=== PATIENT | male | born 1940 | race Caucasian/White ===

== ENCOUNTER 2020-07-04 06:36 | Inpatient (IN) ==
--- NOTE | 2020-06-19 10:01 | PAT Medication Instructions ---
Medication Instructions Date of Service June 19, 2020 Home Medications allopurinol 300 mg PO 2XWK aspirin 162 mg PO HS atorvastatin 40 mg PO HS bisoprolol fumarate 5 mg PO QAM ibuprofen [Ibuprin] 200 mg PO Q6H PRN losartan 50 mg PO QAM Continue as directed allopurinol 300 mg PO 2XWK ASK your surgeon for instructions ibuprofen [Ibuprin] 200 mg PO Q6H PRN ASK your prescriber and surgeon aspirin 162 mg PO HS DO NOT take the morning of surgery losartan 50 mg PO QAM Take morning of surgery With a small sip of water, OTHERWISE NOTHING TO EAT OR DRINK AFTER MIDNIGHT: bisoprolol fumarate 5 mg PO QAM Take evening before surgery atorvastatin 40 mg PO HS Other Notes If you have any questions please call us at [phone] or [phone] or [phone] or [phone]
--- NOTE | 2020-06-20 10:52 | Anesthesiology Consultation ---
Date of Service June 20, 2020 Assessment & Plan (1) Encounter for pre-operative examination: Chart Review Chart Review: Pending: Refer to Additional Notes / Consult section (pending surgeon ordered PCP and cardio clearances ) and Patient seen in Pre Admission Testing Awaiting PCP (06/25) and cardio (06/26) surgeon ordered clearance Per PAT appt on 06/20/20, pt resides in [facility]. Travels to [facility] for medical appts. Wears mask, uses good hand hygiene and socially distances. No known Covid positive contacts or Covid related symptoms. Pt's son traveled to [facility] one week ago to [employer]- no contact with others. Educa marie patient to follow up with surgeon's office regarding Covid testing. Educated on importance of self quarantining, social distancing and wearing mask in public both for the patient and household contacts. Teaching & Discussion Pre-Anesthesia Teaching/Discussion Notes: Instructed NPO after midnight before surgery,except medications with 15 cc of water. Medication instructions provided according to the [facility] guidelines. History Surgery Operation Date: 07/04/20 09:35 Proposed Procedures p L2-S1 Decompression Fusion, Spinal Cord Monitoring - Anup Dillon, Height/Weight Height: 5 ft 11 in Weight: 112.6 kg Allergies Allergy/AdvReac Type Severity Reaction Status Date / Time No Known Allergies Allergy Verified 06/18/20 09:41 Medications Home Medications Medication Instructions Recorded Confirmed Last Taken allopurinol 300 mg PO 2XWK 06/18/20 06/18/20 Unknown aspirin 162 mg PO HS 06/18/20 06/18/20 Unknown atorvastatin 40 mg PO HS 06/18/20 06/18/20 Unknown bisoprolol fumarate 5 mg PO QAM 06/18/20 06/18/20 Unknown ibuprofen [Ibuprin] 200 mg PO Q6H PRN 06/18/20 06/18/20 Unknown losartan 50 mg PO QAM 06/18/20 06/18/20 Unknown Past Medical History Medical History (Updated 06/20/20 @ 11:45 by Mayuri Joshi PA-C) Aortic stenosis Moderate per 09/2019 ECHO- chronic murmur - follows with Dr. Hazel Chronic back pain LOWER BACK GERD (gastroesophageal reflux disease) Well controlled and stable Gout No recent flares Hyperlipidemia Hypertension SOB (shortness of breath) on exertion INACTIVE DUE TO BACK ISSUES Exercise / Class Metabolic Activity II 4-5 Yardwork/Stairs/Walk up hill (one flight of stairs - no chest pain or SOB) Past Family History Family History Sister Family history of diabetes mellitus Sister Family history of diabetes mellitus Past Surgical History Surgical History H/O myringotomy History of cataract surgery RIGHT History of ear surgery RIGHT-FOR MASTOID ISSUES Past Anesthesia History No Hx of Anesthesia Complications and No Family Hx of Anesthesia Complications History of PONV No Hx of PONV and No Hx of Motion Sickness Social History Smoking Status: Former smoker Smoking End Date: QUIT AGE 25 YRS Hx Alcohol Use: Yes Alcohol type: beer alcohol intake frequency: a few times a week Hx Substance Use: No Review of Systems Occ snoring- had hx of sleep study- no MANUEL Patient denies chest pain, shortness of breath, dyspnea on exertion, cough, wheezing, palpitations. No hx of seizures, stroke, [place]. No hx of blood clots or blood transfusions Physical Exam Vital Signs VITALS BP 164/68 P 52 (chronic bradycardia per patient) TEMP 97.7 SP02 96% RESP 16 Constitutional no acute distress ENMT Mouth: + small oral opening; no TMJ clicking Thyromental Distance: > or= 3.5 Finger Breadths (3.5) Mallampati Class: II Missing molars and side teeth Chipped upper left side tooth Neck + limited neck extension (mild ) Respiratory normal respiratory effort; no respiratory distress Auscultation: lungs clear to auscultation bilaterally; no wheezes Cardiovascular Rate/Rhythm: regular rate and regular rhythm Heart Sounds: + murmur (III/ systolic murmur ) Vessels: no carotid bruit Extra beat occacsionally Musculoskeletal Spine: no pain with cervical ROM Neurologic moves all extremities Psychiatric Orientation: alert Testing Laboratory Results 06/20/20 11:16 06/20/20 11:16 PT 11.4 Seconds (9.0-12.0) 06/20/20 11:16 INR 1.1 (0.9-1.1) 06/20/20 11:16 APTT 30.7 Seconds (21.0-31.0) 06/20/20 11:16 Urine Color Yellow 06/20/20 Unknown Urine Appearance Clear (Clear) 06/20/20 Unknown Urine pH 6.5 (4.5-7.5) 06/20/20 Unknown Ur Specific [place] 1.019 (1.000-1.030) 06/20/20 Unknown Urine Protein Trace (Negative) H 06/20/20 Unknown Urine Glucose (UA) Negative (Negative) 06/20/20 Unknown Urine Ketones Negative (Negative) 06/20/20 Unknown Urine Nitrite Negative (Negative) 06/20/20 Unknown Ur Leukocyte Esterase Negative (Negative) 06/20/20 Unknown Urine WBC (Auto) 1-5 /hpf (0-5) 06/20/20 Unknown Urine RBC (Auto) 0-4 /hpf (0-4) 06/20/20 Unknown U Hyaline Cast (Auto) 0 /lpf (0-5) 06/20/20 Unknown U Epithel Cells (Auto) 0-5 /lpf (0-5) 06/20/20 Unknown Urine Bacteria (Auto) Negative (Negative) 06/20/20 Unknown Blood Type A Positive 06/20/20 11:16 Antibody Screen NEGATIVE 06/20/20 11:16 Electrocardiogram Date: 06/20/20 Sinus bradycardia with occasional PVCs at 53 bpm. Left atrial enlargement. Otherwise normal EKG. Chest X-Ray Date: 06/20/20 Findings: + NAD Echocardiogram Date: 10/02/19 EF: 60-65% LV Function: normal RWMA: + none Valvular Disease: + MR (mild) Degenerated, trileaflet AV with moderate (MG= 29mmHg, DION 1.3cm2). Mild TR. RVSP 45mmHg.
--- NOTE | 2020-06-20 11:56 | XRay Report ---
XR chest Pre-admission PA/Lat CLINICAL HISTORY: pat COMPARISON STUDY: No previous studies for comparison. FINDINGS: Lung volumes are normal. Lungs are clear. There is no pneumothorax or pleural effusion. Car diac size is at the upper limits of normal. Mediastinal contours are normal. There is no evidence for pulmonary edema. IMPRESSION: No acute cardiopulmonary findings. ACT 112: Negative or not required by law. Electronically signed by: Manuelito Cunningham M.D. 06/20/2020 11:55 AM
[2020-06-20 12:34] LABS: Basophils # (auto) 0.04 K/uL (0-0.2); Basophils % (auto) 0.5 %; Eosinophils # (auto) 0.25 K/uL (0-0.5); Eosinophils % (auto) 2.8 %; Hematocrit (blood only) 42.8 % (42-52); Hemoglobin 14.3 g/dL (14.0-18.0); Immature Granulocytes # (auto) 0.02 K/uL (0.00-0.02); Immature Granulocytes % (auto) 0.2 %; Lymphocytes # (auto) 2.03 K/uL (1.2-3.4); Lymphocytes % (auto) 22.9 %; Mean Corpuscular Hemoglobin 30.8 pg (25-34); Mean Corpuscular Hgb Conc 33.4 g/dL (32-36); Mean Platelet Volume 11.6 fL (7.4-10.4); Monocytes # (auto) 0.63 K/uL (0.11-0.59); Monocytes % (auto) 7.1 %; Neutrophils % (auto) 66.5 %; Platelet Count 220 K/uL (130-400); RDW Coefficient of Variation 14.7 % (11.5-14.5); RDW Standard Deviation 49.6 fL (36.4-46.3); Red Blood Count 4.65 M/uL (4.7-6.1); White Blood Count 8.87 K/uL (4.8-10.8)
[2020-06-20 12:38] LABS: Appearance Urine Clear (Clear); Bacteria Urine Automated Negative (Negative); Bilirubin Urine Negative (Negative); Blood Urine Negative (Negative); Cast Urine Automated 0 /lpf (0-5); Color Urine Yellow; Epithelial Cell Urine Auto 0-5 /lpf (0-5); Glucose Urine UA Negative (Negative); Ketones Urine Negative (Negative); Leukocyte Esterase Urine Negative (Negative); Nitrite Urine Negative (Negative); Protein Urine Trace (Negative); RBC Urine Automated 0-4 /hpf (0-4); Specific Gravity Urine 1.019 (1.000-1.030); Urobilinogen Urine Negative (Negative); pH Urine 6.5 (4.5-7.5)
[2020-06-20 12:43] LABS: INR 1.1 (0.9-1.1); Partial Thromboplastin Ratio 1.1; Partial Thromboplastin Time 30.7 Seconds (21.0-31.0); Prothrombin Time 11.4 Seconds (9.0-12.0)
[2020-06-20 12:44] LABS: BUN Creatinine Ratio 14.9 (10-20); Calcium 8.9 mg/dl (8.5-10.1); Creatinine Clr Calc Pharmacy 76.7 ml/min; Est GFR (African American) 84.1; Est GFR (Non-African American) 72.5; Potassium 4.4 mmol/L (3.5-5.1)
--- NOTE | 2020-06-20 19:04 | Electrocardiogram Report ---
Test Reason : Blood Pressure : / mmHG Vent. Rate : 053 BPM Atrial Rate : 053 BPM P-R Int : 204 ms QRS Dur : 092 ms QT Int : 432 ms P-R-T Axes : 058 065 051 degrees QTc Int : 405 ms Sinus bradycardia with occasional Premature ventricular complexes Left atrial enlargement Otherwise normal ECG No previous ECGs available Confirmed by Simone Foreman ([id number]) on 06/20/2020 7:04:23 PM Referred By: Anup Dillon Confirmed By:Ronald Foreman
[~2020-07-04 06:36] MED LIST: ACETAMINOPHEN 500 MG TAB PO SCH; CeleBREX 200 MG CAP PO SCH; GABAPENTIN 300 MG CAP PO SCH; LR 15ML/HR IV SCH; ceFAZolin 2000MG 2,000 MG/15 ML SYR IV SCH
[2020-07-04] MEDS ORDERED: MIDAZOLAM HCL 1 MG/ML 2ML VIAL ONE (06:59)
[2020-07-04] MEDS ORDERED: fentaNYL citrate 100 MCG/2 ML VIAL ONE ×3 (06:59→10:50)
[2020-07-04] MEDS ORDERED: fentaNYL citrate 100 MCG/2 ML VIAL IV PRN (07:00)
[2020-07-04] MEDS ORDERED: ONDANSETRON INJ 2 MG/ML 2 ML VIAL IV PRN ×2 (07:00→12:48)
[2020-07-04] MEDS ORDERED: ePHEDrine sulfate 50 MG/ML AMP IV PRN (07:00)
[2020-07-04] MEDS ORDERED: ATROPINE SULFATE 0.1 MG/ML 10ML SYR IV PRN (07:00)
[2020-07-04] MEDS ORDERED: PROPOFOL IV EMULSION 10 MG/ML 20 ML VIAL IV ONE (07:08)
[2020-07-04] MEDS ORDERED: LIDOCAINE HCL 2% 2 ML VIAL/AMP(20MG/ML) INFIL ONE (07:08)
[2020-07-04] MEDS ORDERED: ROCURONIUM BROMIDE 10 MG/ML 5 ML VIAL IV ONE ×5 (07:08→09:53)
[2020-07-04] MEDS ORDERED: BACITRACIN INJ 50,000 UNIT VIAL ONE (07:11)
[2020-07-04] MEDS ORDERED: BUPIVACAINE/EPINEPHRINE 0.25% 1:200,000 30 ML VIAL ONE (07:11)
--- NOTE | 2020-07-04 07:32 | History & Physical Bridge Note ---
Date of Service July 04, 2020 History & Physical Bridge Note I have examined the patient, reviewed the History & Physical and in the interval since the performance of the History & Physical I have noted the following changes of clinical significance: no changes noted
--- NOTE | 2020-07-04 07:33 | History & Physical Report ---
Date of Service July 04, 2020 Assessment & Plan (1) Neurogenic claudication due to lumbar spinal stenosis: Admission and Anticipated Discharge Date Admission Date: L2-S1 decompression fusion History of Present Illness Chief Complaint: Back and bilateral leg pain Primary Care Provider: Amparo Brody This is a 80-year-old male who presents with back and bilateral leg pain. Failing since course of nonoperative care is here for surgical intervention. Allergies Allergy/AdvReac Type Severity Reaction Status Date / Time No Known Allergies Allergy Verified 07/04/20 07:09 Home Medications Home Medications Medication Instructions Recorded Confirmed Type allopurinol 300 mg PO 2XWK 06/18/20 07/04/20 History aspirin 162 mg PO HS 06/18/20 07/04/20 History atorvastatin 40 mg PO HS 06/18/20 07/04/20 History bisoprolol fumarate 5 mg PO QAM 06/18/20 07/04/20 History ibuprofen [Ibuprin] 200 mg PO Q6H PRN 06/18/20 07/04/20 History losartan 50 mg PO QAM 06/18/20 07/04/20 History Past Med/Surg History Medical History (Updated 07/04/20 @ 07:33 by Anup Dillon DO) Aortic stenosis Moderate per 09/2019 ECHO- chronic murmur - follows with Dr. Hazel Chronic back pain LOWER BACK GERD (gastroesophageal reflux disease) Well controlled and stable Gout No recent flares Hyperlipidemia Hypertension SOB (shortness of breath) on exertion INACTIVE DUE TO BACK ISSUES Surgical History H/O myringotomy History of cataract surgery RIGHT History of ear surgery RIGHT-FOR MASTOID ISSUES Family History Sister Family history of diabetes mellitus Sister Family history of diabetes mellitus Social History Smoking Status: Former smoker Smoking End Date: QUIT AGE 25 YRS; Second Hand Exposure: Yes (FATHER SMOKED); Hx Alcohol Use: Yes Alcohol type: beer Hx Substance Use: No Preferred Language: Divehi Communication Ability: Effective Windows Vmware Engineer Required: No Beliefs That Will Affect Care: None Current Living Situation: Alone Other Information That Helps Us Care for You: No Feels Safe at Home: Yes Safety Concerns: Feels Safe At This Time Assistive Devices: Cane and Glasses Assistive Devices Comment: CANE PRN Physical Exam Physical Exam: Patient is alert and oriented neurologically intact. Heart regular rate and rhythm. Lungs clear to auscultation. Results & Data ([facility]) Vital Signs (Past 12 Hours) Vital Signs Temp Pulse Resp BP Pulse Ox 07/04/20 07:14 36.7 C 73 20 175/83 H 97
[2020-07-04] MEDS ORDERED: ePHEDrine sulfate 50 MG/ML SYR ONE (08:07)
[2020-07-04] MEDS ORDERED: THROMBIN FOR SOLN 20000 UNIT KIT ONE (08:15)
[2020-07-04] MEDS ORDERED: ONDANSETRON INJ 2 MG/ML 2 ML VIAL ONE (08:58)
[2020-07-04] MEDS ORDERED: NEOSTIGMINE METHYLSULFATE 1 MG/ML 10ML VIAL ONE (08:58)
[2020-07-04] MEDS ORDERED: DEXAMETHASONE SOD INJ 4 MG/ML VIAL ONE (08:58)
[2020-07-04] MEDS ORDERED: GLYCOPYRROLATE 0.2 MG/ML VIAL ONE (08:58)
[2020-07-04] MEDS ORDERED: FLOSEAL HEMOSTATIC MATRIX 10ML TOP ONE (10:38)
--- NOTE | 2020-07-04 10:39 | Operative Report ---
Post Operative Report Pre & Post Diagnosis Operation Date: 07/04/20 07:45 Pre-Op Diagnosis: Spinal Stenosis, Lumbar Region with Neurogenic Cla Post-Op Diagnosis: Spinal Stenosis, Lumbar Region with Neurogenic Cla I identified the patient and participated in the time-out.: Yes Procedure Operation Date: 07/04/20 07:45 Actual Procedures #1 lumbar decompression with bilateral medial facetectomies and foraminotomies L2-3, L3-4, L4-5 and L5-S1. #2 posterior spinal fusion L2-3, L3-4, L4-5 and L5- S1. #3 placement posterior segmental instrumentation L2-S1 including a cross- link. #4 placement locally harvested morselized autograft in the posterior lateral gutters. #5 placement infuse collagen sponge, master graft in the posterior lateral gutters. Surgeon Anup Dillon, DO Grinder Set Up Operator External Hoda Dillon Estimated Blood Loss 400 Findings See Below The patient is 5 foot 11 inches tall weighing over 111 kg with a BMI in excess of 34. Patient's body habitus did add increased technical difficulty requiring her deepest retractors and longus instruments in order to perform this procedure. This at least 50% increase to the operative time. Specimens None Indications This is a 80-year-old male who presents above-mentioned diagnosis after failing stents course of nonoperative care is here for surgical invention. Description of Procedure Patient was met with identified informed consent obtained. Patient was then taken to the operative suite underwent intubation placed in a prone position the Dandy table on top Lenny frame. All bony prominences well-padded eyes inspected to ensure no external pressure placed upon them. This point the lumbar spine was prepped and draped in a normal sterile fashion. Sharp dissection with assistance pericardial was performed down to and exposing the lamina and transverse processes of L2 L3-L4-L5 and sacral ala bilaterally. From a caudal cephalad fashion complete laminectomy of L5 L4 L3 and L2 was performed including bilateral medial facetectomies and foraminotomies addressing severe spinal stenosis. Pedicle screws were then placed in L2 L3-L4-L5 and the S1 levels bilaterally with assistance of fluoroscopy and appropriate size michel locked in position. A cross-link was locked into position. The transverse processes of L2 L3-L4-L5 and sacral ala were then burred to subcortical bleeding bone. Infuse collagen sponge master graft local autograft was placed in the posterior lateral gutters. 15 round LIBRADO drain inserted. Incision was then closed with 1 Vicryl in the fascia 2-0 Vicryl subcutaneously and 4 Monocryl for final skin closure. Steri-Strip sterile dressings placed. Patient waken taken to PACU in stable condition. Please note spinal cord monitoring was last that the procedure no changes noted. Lastly Hoda Dillon was present at the entire surgery involved the patient positioning complex portions of the surgery and final skin closure. I attest to the content of the Intraoperative Record and any orders documented therein. Any exceptions are noted below.
--- NOTE | 2020-07-04 10:54 | Fluoroscopy Report ---
FL lumbar spine 2-3V CLINICAL HISTORY: L2-S1 spinal decompression and fusion COMPARISON STUDY: None FLUOROSCOPY TIME: 3 seconds. NUMBER OF FLUOROSCOPIC IMAGES: 3 FINDINGS: Intraoperative fluoroscopic spot images reveal postsurgical changes of an L2-S1 spinal deco mpression and fusion with posterior pedicle screw fixation. IMPRESSION: Intraoperative fluoroscopic spot images demonstrating an L2-S1 spinal decompression and fusion ACT 112: Negative or not required by law. Electronically signed by: Bird Arreguin M.D. 07/04/2020 10:53 AM
[2020-07-04] MEDS ORDERED: NALOXONE HCL 0.4 MG/1 ML VIAL/CARP IV PRN (12:48)
[2020-07-04] MEDS ORDERED: DO NOT ADMINISTER PNEUMOCOCCAL VACCINE PRN (12:48)
[2020-07-04] MEDS ORDERED: HYDROmorphone INJ 1 MG/ML SYRINGE IV PRN (12:48)
[2020-07-04] MEDS ORDERED: ACETAMINOPHEN 500 MG TAB PO PRN (12:48)
[2020-07-04] MEDS ORDERED: PROMETHAZINE HCL 12.5 MG in SODIUM CHLORIDE 0.9% 50 ML IV PRN (12:48)
[2020-07-04] MEDS ORDERED: oxyCODONE HCL IR 5 MG TAB (IMMEDIATE RELEASE) PO PRN (12:48)
[2020-07-04] MEDS ORDERED: METOCLOPRAMIDE HCL INJ 5 MG/ML 2 ML VIAL IV PRN (12:48)
[2020-07-04] MEDS ORDERED: bisacodyL 10 MG SUPP PR PRN (12:48)
[2020-07-04] MEDS ORDERED: ONDANSETRON 4 MG OD TAB PO PRN (12:48)
[2020-07-04] MEDS ORDERED: SOD PHOSPHATE/SOD BIPHOSPHATE ENEMA 132 ML BTL PR PRN (12:48)
[2020-07-04] MEDS ORDERED: traMADol HCL 50 MG TABLET PO PRN (12:48)
[2020-07-04] MEDS ORDERED: ALUMINUM/MAGNESIUM SUSP 30 ML UDC PO PRN (12:48)
[2020-07-04] MEDS ORDERED: DO NOT ADMINISTER FLU VACCINE PRN (12:48)
[2020-07-04] MEDS ORDERED: LORazepam 0.5 MG TAB PO PRN (12:48)
[2020-07-04] MEDS ORDERED: FAMOTIDINE 20 MG TAB PO PRN (12:48)
[2020-07-04] MEDS ORDERED: HYDROmorphone INJ 0.5 MG/0.5 ML SYR IV PRN (12:48)
[2020-07-04] MEDS ORDERED: diphenhydrAMINE Capsule 25 MG CAP PO PRN (12:48)
[2020-07-04] MEDS ORDERED: hydrOXYzine HCl 25 MG TAB PO PRN (12:48)
[2020-07-04] MEDS ORDERED: LORazepam 0.5 MG/1 ML VIAL IV PRN (12:48)
[2020-07-04] MEDS ORDERED: ACETAMINOPHEN 1,000 MG/100 ML VIAL IV PRN (12:48)
[2020-07-04] MEDS ORDERED: MAGNESIUM HYDROXIDE SUSP 30 ML UDC PO PRN (12:48)
--- NOTE | 2020-07-04 12:48 | Anesthesiology Progress Note ---
Date of Service July 04, 2020 Anesthesia Post Procedure Vital Signs Vital Signs: Temp Pulse Pulse Resp BP BP Pulse Ox 07/04/20 12:10 63 12 103/56 L 98 07/04/20 12:00 61 15 100/48 L 98 07/04/20 11:50 62 14 108/54 L 98 07/04/20 11:40 97.7 F 60 12 110/54 L 98 07/04/20 11:30 60 17 105/65 99 07/04/20 11:20 60 15 108/49 L 99 07/04/20 11:10 61 15 120/55 L 99 07/04/20 11:01 97.7 F 58 L 12 102/54 L 99 07/04/20 07:14 98.1 F 73 20 175/83 H 97 Transfer of Care Handoff Completed per policy Notes Mental Status: alert / awake / arousable and participated in evaluation Patient Amnestic to Procedure: Yes Nausea / Vomiting: adequately controlled Pain: adequately controlled Airway Patency, RR, SpO2: stable & adequate BP & HR: stable & adequate Hydration State: stable & adequate Anesthetic Complications: no major complications apparent and Pt Satisfied with anesthetic care
[2020-07-04] MEDS: SODIUM CHLORIDE 0.9% 1000ML 1,000 ML IV SCH ×2 (13:03→18:37)
--- NOTE | 2020-07-04 13:36 | Hospitalist Consultation ---
Date of Consultation July 04, 2020 Assessment & Plan (1) Bradycardia: Noted to have bradycardia when vital signs were taken on the Dinamap, but having frequent bigeminy on ECG-most likely PVCs or not transmitting and therefore making heart rate appear lower than it is. Patient is completely asymptomatic with this. He did not take his Zebeta on the morning of surgery-we will hold this if heart rate less than 60 on telemetry, however the frequent PVCs may be helped by adding the beta-mahsa back on Consult cardiology appreciated -Transfer from third floor down to PCU for closer monitoring on telemetry If has continued frequent PVCs or bigeminy, appreciate any further recommendati ons by cardiology -Follow electrolytes and replace as needed (2) Frequent PVCs: As above (3) Pulmonary hypertension: Noted in history No acute issues (4) Aortic stenosis: Noted to be moderate on most recent echo from 09/2019 by his care asst notes No acute issues (5) Neurogenic claudication due to lumbar spinal stenosis: Status post L2-S1 decompression and fusion by Dr. Dillon on 07/04 Postoperative care as per orthopedics EBL 400 mL's Checked CBC today urgently during bradycardic episode and hemoglobin slightly down from preoperative value Follow CBC in the morning LIBRADO drain in place Ford catheter remains in place Pain control, antiemetics, bowel regimen (6) GERD (gastroesophageal reflux disease): Listed as a diagnosis in his chart but not on medications for this Follow along (7) Gout: No acute issues Continue home allopurinol 300 mg 2 times a week (8) Hypertension: Blood pressures are within normal limits -Continue Zebeta as above with hold parameters Continue home losartan 50 mg daily (9) Hyperlipidemia: Continue home statin (10) DVT prophylaxis: Thigh-high SCDs, no chemical prophylaxis due to spinal surgery Disposition-transfer from medical/surgical to PCU for further telemetry monitoring for bradycardia Hospitalist service will continue to follow along I communicated my plan with the primary attending, Dr. Dillon History of Present Illness Reason for Consultation: Postop medical management, bradycardia Requesting Physician: Dr. Dillon Attending Physician: Anup Dillon, DO History of Present Illness This patient is an 80-year-old male with a history of moderate aortic stenosis, BPH, pulmonary HTN, hyperlipidemia, HTN, gout, and lumbar radiculopathy who was admitted to the hospital for L2-S1 lumbar decompression and fusion. The patient was noted to have a heart rate in the 30s on the pulse ox and in the 40s when palpated apically by the nurse. I was called to evaluate the patient urgently after he arrived to the third floor. ECG reveals frequent PVCs which likely accounts for the lost beats and the real heart rate is in the 60s. He had also been reportedly having frequent PVCs and some bigeminy in the PACU as well. The patient reports he took none of his meds today including his beta-mahsa. The patient denied any symptoms at all of lightheadedness or nausea, no abdominal pain, no chest pain or shortness of breath. He was not having any back pain. Allergies Allergy/AdvReac Type Severity Reaction Status Date / Time No Known Allergies Allergy Verified 07/04/20 07:09 Home Medications Home Medications Medication Instructions Recorded Confirmed Type allopurinol 300 mg PO 2XWK 06/18/20 07/04/20 History aspirin 162 mg PO HS 06/18/20 07/04/20 History atorvastatin 40 mg PO HS 06/18/20 07/04/20 History bisoprolol fumarate 5 mg PO QAM 06/18/20 07/04/20 History ibuprofen [Ibuprin] 200 mg PO Q6H PRN 06/18/20 07/04/20 History losartan 50 mg PO QAM 06/18/20 07/04/20 History Patient History Medical History Aortic stenosis Moderate per 09/2019 ECHO- chronic murmur - follows with Dr. Hazel Chronic back pain LOWER BACK GERD (gastroesophageal reflux disease) Well controlled and stable Gout No recent flares Hyperlipidemia Hypertension Pulmonary hypertension SOB (shortness of breath) on exertion INACTIVE DUE TO BACK ISSUES Surgical History H/O myringotomy History of cataract surgery RIGHT History of ear surgery RIGHT-FOR MASTOID ISSUES Family History Sister Family history of diabetes mellitus Sister Family history of diabetes mellitus Social History Smoking Status: Former smoker Smoking End Date: QUIT AGE 25 YRS; Second Hand Exposure: Yes (FATHER SMOKED); Hx Alcohol Use: Yes Alcohol type: beer Alcohol Intake Frequency: 4 or More x per/Week Alcohol Intake Frequency Comment: But recently cut down to 1 beer per week for the last for 3 weeks Hx Substance Use: No Preferred Language: Icelandic Communication Ability: Effective Dry Cleaning Supervisor Required: No Beliefs That Will Affect Care: None Current Living Situation: Alone Other Information That Helps Us Care for You: No Feels Safe at Home: Yes Safety Concerns: Feels Safe At This Time Assistive Devices: Cane and Glasses Assistive Devices Comment: CANE PRN Review of Systems Review of Systems: All systems reviewed & are unremarkable except as noted in HPI & below Physical Exam Constitutional: WD/WN, vitals as above Eyes: + anicteric sclerae ENMT: external ear and nose normal, oropharynx normal Neck: trachea midline, no thyromegaly Respiratory: normal respiratory effort, lungs clear to auscultation Cardiovascular: Rate/Rhythm: regular rhythm and + bradycardic Heart Sounds: + murmur (3/6 holosystolic murmur at the RUSB) Vessels: dorsalis pedis pulses present Extremities: no edema Chest (Breasts): Chest: normal inspection of chest Gastrointestinal (Abdomen): normal bowel sounds, soft, nontender, no hepatosplenomegaly Musculoskeletal: Extremities: extremities normal to inspection; no cyanosis and no clubbing Skin: no rashes, warm and dry Neurologic: moves all extremities and awake; no focal motor deficits Psychiatric: A+Ox3, euthymic affect Lymphatic: no lymphedema Results & Data Results & Data ([facility]) Vital Signs (Past 12 Hours) Vital Signs Temp Pulse Pulse Resp BP BP Pulse Ox 07/04/20 13:26 36.5 C 52 L 16 140/75 100 07/04/20 13:00 36.5 C 54 L 18 138/75 100 07/04/20 12:30 36.4 C L 38 L 16 110/50 L 93 07/04/20 12:10 63 12 103/56 L 98 07/04/20 12:00 61 15 100/48 L 98 07/04/20 11:50 62 14 108/54 L 98 07/04/20 11:40 36.5 C 60 12 110/54 L 98 07/04/20 11:30 60 17 105/65 99 07/04/20 11:20 60 15 108/49 L 99 07/04/20 11:10 61 15 120/55 L 99 07/04/20 11:01 36.5 C 58 L 12 102/54 L 99 07/04/20 07:14 36.7 C 73 20 175/83 H 97 Laboratory Results 07/04/20 07/04/20 07/04/20 Range/Units 13:55 13:55 07:06 WBC 14.96 H (4.8-10.8) K/uL RBC 4.27 L (4.7-6.1) M/uL Hgb 12.9 L (14.0-18.0) g/dL Hct 38.8 L (42-52) % MCV 90.9 (80-100) fL MCH 30.2 (25-34) pg MCHC 33.2 (32-36) g/dL RDW Std Deviation 46.9 H (36.4-46.3) fL RDW Coeff of Awais 14.1 (11.5-14.5) % Plt Count 192 (130-400) K/uL MPV 10.7 H (7.4-10.4) fL Immature Gran % (Auto) 0.3 % Neut % (Auto) 91.2 % Lymph % (Auto) 6.8 % [place] % (Auto) 1.5 % Eos % (Auto) 0.1 % Baso % (Auto) 0.1 % Neut # (Auto) 13.65 H (1.4-6.5) K/uL Lymph # (Auto) 1.01 L (1.2-3.4) K/uL [place] # (Auto) 0.23 (0.11-0.59) K/uL Eos # (Auto) 0.01 (0-0.5) K/uL Baso # (Auto) 0.01 (0-0.2) K/uL Immature Gran # (Auto) 0.05 H (0.00-0.02) K/uL Sodium 138 (136-145) mmol/L Potassium 3.8 (3.5-5.1) mmol/L Chloride 106 (98-107) mmol/L Carbon Dioxide 23 (21-32) mmol/L Anion Gap 9.0 (3-11) BUN 16 (7-18) mg/dl Creatinine 1.29 (0.6-1.4) mg/dl Est Cr Clr Drug Dosing 57.9 ml/min Est GFR ( Amer) 60.3 Est GFR (Non-Af Amer) 52.0 BUN/Creatinine Ratio 12.6 (10-20) Glucose 182 H (70-99) mg/dl Calcium 8.8 (8.5-10.1) mg/dl Magnesium 1.9 (1.8-2.4) mg/dl Total Bilirubin 0.8 (0.2-1) mg/dl Direct Bilirubin 0.2 (0-0.2) mg/dl AST 36 (15-37) U/L ALT 42 (12-78) U/L Alkaline Phosphatase 60 (45-117) U/L Total Protein 6.9 (6.4-8.2) gm/dl Albumin 3.4 (3.4-5.0) gm/dl Blood Type A Positive Antibody Screen NEGATIVE Crossmatch See Detail ECG Additional Comments: ECG on 07/04/2020 at 1258 with sinus rhythm with PVCs in a pattern of bigeminy, rate 64 PG Care Time/CCT Total # of Minutes Spent Total Time Spent with Patient: Total time spent is greater than 50% in coord ination of care (as documented) at patient's floor/unit and/or counseling patient: Coding Level of Care Code 08744 Inpt Consult Level 3 Diagnoses Bradycardia R00.1 Frequent PVCs I49.3 Pulmonary hypertension I27.20 Aortic stenosis I35.0 Neurogenic claudication due to lumbar spinal stenosis M48.062 GERD (gastroesophageal reflux disease) K21.9 Gout M10.9 Hypertension I10 Hyperlipidemia E78.5 DVT prophylaxis Z29.9
[2020-07-04 14:07] LABS: Basophils # (auto) 0.01 K/uL (0-0.2); Basophils % (auto) 0.1 %; Eosinophils # (auto) 0.01 K/uL (0-0.5); Eosinophils % (auto) 0.1 %; Hematocrit (blood only) 38.8 % (42-52); Hemoglobin 12.9 g/dL (14.0-18.0); Immature Granulocytes # (auto) 0.05 K/uL (0.00-0.02); Immature Granulocytes % (auto) 0.3 %; Lymphocytes # (auto) 1.01 K/uL (1.2-3.4); Lymphocytes % (auto) 6.8 %; Mean Corpuscular Hemoglobin 30.2 pg (25-34); Mean Corpuscular Volume 90.9 fL (80-100); Mean Platelet Volume 10.7 fL (7.4-10.4); Monocytes # (auto) 0.23 K/uL (0.11-0.59); Monocytes % (auto) 1.5 %; Neutrophils # (auto) 13.65 K/uL (1.4-6.5); Neutrophils % (auto) 91.2 %; Platelet Count 192 K/uL (130-400); RDW Coefficient of Variation 14.1 % (11.5-14.5); RDW Standard Deviation 46.9 fL (36.4-46.3); Red Blood Count 4.27 M/uL (4.7-6.1); White Blood Count 14.96 K/uL (4.8-10.8)
[2020-07-04 14:18] LABS: Mean Corpuscular Hgb Conc 33.2 g/dL (32-36)
[2020-07-04 14:26] LABS: Albumin Level 3.4 gm/dl (3.4-5.0); BUN Creatinine Ratio 12.6 (10-20); Bilirubin Direct 0.2 mg/dl (0-0.2); Calcium 8.8 mg/dl (8.5-10.1); Creatinine Clr Calc Pharmacy 57.9 ml/min; Est GFR (African American) 60.3; Magnesium 1.9 mg/dl (1.8-2.4); Potassium 3.8 mmol/L (3.5-5.1)
[2020-07-04 14:30] LABS: Bilirubin,Total 0.8 mg/dl (0.2-1); Total Protein 6.9 gm/dl (6.4-8.2)
[2020-07-04] MEDS: ceFAZolin 2000MG 2,000 MG/15 ML SYR IV SCH (17:10)
[2020-07-04] MEDS: DOCUSATE SODIUM/SENNA 50/8.6MG TAB PO SCH (20:27)
[2020-07-04] MEDS: ATORVASTATIN 40 MG TAB PO SCH (20:27)
[2020-07-04] MEDS: ASPIRIN 81 MG ECTAB PO SCH (20:27)
[2020-07-05] MEDS: ceFAZolin 2000MG 2,000 MG/15 ML SYR IV SCH (00:42)
[2020-07-05] MEDS: SODIUM CHLORIDE 0.9% 1000ML 1,000 ML IV SCH (02:39)
[2020-07-05 05:42] LABS: Basophils # (auto) 0.01 K/uL (0-0.2); Basophils % (auto) 0.1 %; Eosinophils # (auto) 0.01 K/uL (0-0.5); Eosinophils % (auto) 0.1 %; Hematocrit (blood only) 31.2 % (42-52); Hemoglobin 10.6 g/dL (14.0-18.0); Immature Granulocytes # (auto) 0.05 K/uL (0.00-0.02); Immature Granulocytes % (auto) 0.3 %; Lymphocytes # (auto) 1.63 K/uL (1.2-3.4); Lymphocytes % (auto) 10.4 %; Mean Corpuscular Hemoglobin 30.5 pg (25-34); Mean Corpuscular Volume 89.9 fL (80-100); Monocytes # (auto) 1.21 K/uL (0.11-0.59); Monocytes % (auto) 7.7 %; Neutrophils # (auto) 12.82 K/uL (1.4-6.5); Neutrophils % (auto) 81.4 %; Platelet Count 194 K/uL (130-400); RDW Coefficient of Variation 14.1 % (11.5-14.5); RDW Standard Deviation 46.8 fL (36.4-46.3); Red Blood Count 3.47 M/uL (4.7-6.1); White Blood Count 15.73 K/uL (4.8-10.8)
[2020-07-05 06:09] LABS: BUN Creatinine Ratio 16.9 (10-20); Calcium 7.6 mg/dl (8.5-10.1); Creatinine Clr Calc Pharmacy 71.3 ml/min; Est GFR (African American) 75.6; Est GFR (Non-African American) 65.2; Magnesium 1.6 mg/dl (1.8-2.4)
[2020-07-05] MEDS: POLYETHYLENE (MIRALAX) 17 GM PACK PO SCH ×4 (06:11→17:47)
[2020-07-05] MEDS: allopurinoL 300 MG TAB PO SCH (07:31)
[2020-07-05] MEDS: LOSARTAN POTASSIUM 50 MG TAB PO SCH (07:31)
[2020-07-05] MEDS: BISOPROLOL FUMARATE 5 MG TAB PO SCH (07:32)
--- NOTE | 2020-07-05 11:46 | Orthopedic Progress Note ---
Date of Service July 05, 2020 Assessment & Plan (1) Neurogenic claudication due to lumbar spinal stenosis: Admission and Anticipated Discharge Date Admission Date: July 04, 2020 At this time we will initiate physical therapy occupational therapy assess his progress hopefully transfer to orthopedic floor once stable Subjective Patient is comfortable leg symptoms improved. Physical Exam Physical Exam: On exam he is safe in bed has good strength testing. Results & Data ([facility]) Vital Signs (Past 12 Hours) Vital Signs Temp Pulse Pulse Resp BP BP Pulse Ox 07/05/20 08:00 36.7 C 58 L 55 L 20 118/56 L 99 07/05/20 04:24 36.4 C L 59 L 18 124/63 98 07/04/20 23:51 36.5 C 71 18 127/62 95
--- NOTE | 2020-07-05 12:48 | Electrocardiogram Report ---
Test Reason : Blood Pressure : / mmHG Vent. Rate : 066 BPM Atrial Rate : 066 BPM P-R Int : 190 ms QRS Dur : 090 ms QT Int : 448 ms P-R-T Axes : 028 020 063 degrees QTc Int : 469 ms Sinus rhythm with frequent Premature ventricular complexes in a pattern of bigeminy Otherwise normal ECG When compared with ECG of 20-JUN-2020 11:27, No significant change Confirmed by Tree Maharaj ([id number]) on 07/05/2020 12:48:40 PM Referred By: Anup Dillon Confirmed By:Tree Maharaj
--- NOTE | 2020-07-05 12:49 | Electrocardiogram Report ---
Test Reason : Blood Pressure : / mmHG Vent. Rate : 064 BPM Atrial Rate : 064 BPM P-R Int : 178 ms QRS Dur : 088 ms QT Int : 444 ms P-R-T Axes : 030 022 060 degrees QTc Int : 458 ms Sinus rhythm with frequent Premature ventricular complexes in a pattern of bigeminy Otherwise normal ECG When compared with ECG of 20-JUN-2020 11:27, No significant change was found Confirmed by Tree Maharaj ([id number]) on 07/05/2020 12:48:47 PM Referred By: Anup Dillon Confirmed By:Tree Maharaj
--- NOTE | 2020-07-05 14:28 | Cardiology Consultation ---
Date of Consultation July 05, 2020 Assessment & Plan (1) Bradycardia: He has a low pulse due to ventricular bigeminy, his sinus rate has not been terribly low. My approach would be to try to suppress the PVCs. He has been on a beta-mahsa, he did receive that this morning and his PVCs have dramatically improved. I would continue the current dose of beta-mahsa and monitor his rhythm. I doubt he had sinus bradycardia, and if his sinus rate slows down slightly if we can eliminate his PVCs than that result will be an increase in heart rate. In the past on beta-blockade he has not had symptoms to suggest symptomatic bradycardia. (2) Frequent PVCs: He has frequent premature ventricular beats, often in a pattern of bigeminy here, which may be adequately suppressed on beta-blockade. He has had no ventricular tachycardia identified here and no hemodynamic symptoms historically or here related to the arrhythmia. The origin looks like the right ventricular outflow tract and may well respond to beta-blockade. If that does not work and the rhythm needs to be treated (if he develops symptoms or left ventricular dysfunction) then ablation would be an option. (3) Aortic stenosis: He has aortic stenosis which has been moderate in the past and he follows with cardiology elsewhere for this. I would not evaluate further here and this is probably unrelated to his arrhythmia. History of Present Illness Reason for Consultation: Decreased effective heart rate and ventricular bigeminy Attending Physician: Anup Dillon, DO History of Present Illness This is an 80-year-old male who follows with cardiology in [place] I believe due to valvular heart disease by his description (moderate aortic stenosis with a valve area of 1.3 cm when last evaluated by echocardiography in September 2019). He does however have a lifelong history of intermittent palpitations, they are not very bothersome to him but he tells me they have probably been present since he was a child. I am not sure what type of evaluation was performed for them but they have not seem to bother him. He was transferred here for spine surgery and was noted to have a slow effective heart rate in the postop period due to very frequent premature ventricular beats. Of note his beta-mahsa was held (at least he did not take it) the day of surgery however it was restarted today. He describes to me being aware that he had this arrhythmia but having no clear symptoms related to it, he may have palpitations but they are not very bothersome, I do not know the details of the arrhythmia but there is an electrocardiogram from June 20, 2019 showing 2 PVCs on the tracing and then recordings here showing ventricular bigeminy. He does not recall wearing a 24- hour monitor. He has never had lightheadedness or dizziness, he does not have exertional cardiac symptoms but has been very limited by back pain. He has not had significant palpitations or other cardiac symptom since surgery and he went through surgery well. Allergies Allergy/AdvReac Type Severity Reaction Status Date / Time No Known Allergies Allergy Verified 07/04/20 07:09 Home Medications Home Medications Medication Instructions Recorded Confirmed Type allopurinol 300 mg PO 2XWK 06/18/20 07/04/20 History aspirin 162 mg PO HS 06/18/20 07/04/20 History atorvastatin 40 mg PO HS 06/18/20 07/04/20 History bisoprolol fumarate 5 mg PO QAM 06/18/20 07/04/20 History ibuprofen [Ibuprin] 200 mg PO Q6H PRN 06/18/20 07/04/20 History losartan 50 mg PO QAM 06/18/20 07/04/20 History Patient History Medical History Aortic stenosis Moderate per 09/2019 ECHO- chronic murmur - follows with Dr. Hazel Chronic back pain LOWER BACK GERD (gastroesophageal reflux disease) Well controlled and stable Gout No recent flares Hyperlipidemia Hypertension Pulmonary hypertension SOB (shortness of breath) on exertion INACTIVE DUE TO BACK ISSUES Surgical History H/O myringotomy History of cataract surgery RIGHT History of ear surgery RIGHT-FOR MASTOID ISSUES Family History Sister Family history of diabetes mellitus Sister Family history of diabetes mellitus Social History Smoking Status: Former smoker Smoking End Date: QUIT AGE 25 YRS; Second Hand Exposure: Yes (FATHER SMOKED); Hx Alcohol Use: Yes Alcohol type: beer Alcohol Intake Frequency: 4 or More x per/Week Alcohol Intake Frequency Comment: But recently cut down to 1 beer per week for the last for 3 weeks Hx Substance Use: No Preferred Language: Togolese Communication Ability: Effective Child And Family Therapist Required: No Beliefs That Will Affect Care: None Current Living Situation: Alone Other Information That Helps Us Care for You: No Feels Safe at Home: Yes Safety Concerns: Feels Safe At This Time Assistive Devices: Walker Assistive Devices Comment: LEANNE GIANGN Review of Systems Review of Systems: All systems reviewed & are unremarkable except as noted in HPI & below Physical Exam Physical Exam: Constitutional: Alert, cooperative and in no distress. HEENT: Unremarkable Neck: No jugular venous distention, carotid pulses are normal and equal bilaterally without bruits. Pulmonary: Clear to auscultation bilaterally. Cardiac: Regular rhythm with premature beats and a grade 2/6 crescendo decrescendo murmur at the base, no gallop or rub. Abdomen: Soft, nontender with normal bowel sounds. Extremities: No edema. Distal pulses intact. Neurologic: No focal findings. Gait was not tested. Skin: No rash, ecchymoses or petechiae. Results & Data ([facility]) Vital Signs (Past 12 Hours) Vital Signs Temp Pulse Pulse Resp BP BP Pulse Ox 07/05/20 08:00 36.7 C 58 L 55 L 20 118/56 L 99 07/05/20 04:24 36.4 C L 59 L 18 124/63 98 Laboratory Results CBC 07/05/20 Range/Units 05:22 WBC 15.73 H (4.8-10.8) K/uL RBC 3.47 L (4.7-6.1) M/uL Hgb 10.6 L (14.0-18.0) g/dL Hct 31.2 L (42-52) % Plt Count 194 (130-400) K/uL Neut # (Auto) 12.82 H (1.4-6.5) K/uL Lymph # (Auto) 1.63 (1.2-3.4) K/uL [place] # (Auto) 1.21 H (0.11-0.59) K/uL Eos # (Auto) 0.01 (0-0.5) K/uL Baso # (Auto) 0.01 (0-0.2) K/uL Comprehensive Metabolic Panel 07/05/20 Range/Units 05:22 Sodium 139 (136-145) mmol/L Potassium 4.0 (3.5-5.1) mmol/L Chloride 108 H (98-107) mmol/L Carbon Dioxide 25 (21-32) mmol/L BUN 18 (7-18) mg/dl Creatinine 1.07 (0.6-1.4) mg/dl Glucose 181 H (70-99) mg/dl Calcium 7.6 L (8.5-10.1) mg/dl Intake and Output 07/04/20 07/05/20 07/05/20 22:59 06:59 14:59 Intake Total 1279 / 4099 1120 / 4099 962.5 / 962.5 Output Total 460 / 2220 640 / 2220 100 / 100 Balance 819 / 1879 480 / 1879 862.5 / 862.5 Intake: IV 835 / 1835 1000 / 1835 962.5 / 962.5 Nss 1000ML 1,000 ml @ 150 mls/ 835 / 1835 1000 / 1835 962.5 / 962.5 hr IV .Q6H40M [facility] Rx#:[id number] Oral 444 / 564 120 / 564 Output: Urine Amount (Catheter) 250 / 1050 500 / 1050 Ford/Indwelling 250 / 1050 500 / 1050 Drain Output 210 / 770 140 / 770 100 / 100 Lower Back LIBRADO 210 / 770 140 / 770 100 / 100 Other: Weight 115.9 kg Diagnostic Findings ECG: He had an electrocardiogram done June 20, 2020 which showed sinus rhythm and 2 premature ventricular beats with a morphology suggestive of a right ventricular outflow tract origin but these were not recorded in all leads. Postoperatively on July 04, 2020 he had ventricular bigeminy and once again the QRS morphology during the PVCs looks like a right ventricular outflow tract origin. Telemetry: Sinus rhythm with frequent unifocal PVCs, no complex arrhythmia such as pairs or nonsustained ventricular tachycardia. The frequency of the PVCs is generally increased with higher heart rates although the correlation is not terribly precise, he had decreased PVCs during the nighttime and increased his P VCs and ventricular bigeminy during the daytime. He is frequently in ventricular bigeminy. PG Care Time/CCT Total # of Minutes Spent Total Time Spent with Patient: Total time spent is greater than 50% in coordination of care (as documented) at patient's floor/unit and/or counseling patient: Coding Level of Care Code 89640 Initial Inpt Care Lvl 3 Diagnoses Bradycardia R00.1 Frequent PVCs I49.3 Aortic stenosis I35.0
--- NOTE | 2020-07-05 15:11 | Hospitalist Progress Note ---
Date of Service July 05, 2020 Assessment & Plan (1) Bradycardia: Noted to have bradycardia when vital signs were taken on the Dinamap, but having frequent bigeminy on ECG-most likely PVCs or not transmitting and therefore making heart rate appear lower than it is. Patient is completely asymptomatic with this. He did not take his Zebeta on the morning of surgery-we will hold this if heart rate less than 60 on telemetry, however the frequent PVCs may be helped by adding the beta-mahsa back on -Transferred from third floor down to PCU for closer monitoring on telemetry If has continued frequent PVCs or bigeminy, appreciate any further recommendations by cardiology -Follow electrolytes and replace as needed Cardiology feels bradycardia is related to bigeminy and is continuing beta mahsa Episode this AM: resolved quickly and spontaneously without repeat, continue to monitor CBC this AM was with slight decrease, but not unexpected or marked in the post- op setting (2) Frequent PVCs: As above (3) Pulmonary hypertension: Noted in history No acute issues (4) Aortic stenosis: Noted to be moderate on most recent echo from 09/2019 by his vp public relations notes No acute issues (5) Neurogenic claudication due to lumbar spinal stenosis: Status post L2-S1 decompression and fusion by Dr. Dillon on 07/04 Postoperative care as per orthopedics EBL 400 mL's Checked CBC today urgently during bradycardic episode and hemoglobin slightly down from preoperative value Slight decrease, monitor LIBRADO drain in place Ford catheter remains in place Pain control, antiemetics, bowel regimen (6) GERD (gastroesophageal reflux disease): Listed as a diagnosis in his chart but not on medications for this Follow along (7) Gout: No acute issues Continue home allopurinol 300 mg 2 times a week (8) Hypertension: Blood pressures are within normal limits -Continue Zebeta as above with hold parameters Continue home losartan 50 mg daily (9) Hyperlipidemia: Continue home statin (10) DVT prophylaxis: Thigh-high SCDs, no chemical prophylaxis due to spinal surgery (11) Hypomagnesemia: Replace and monitor Admission and Anticipated Discharge Date Admission Date: July 04, 2020 Subjective Pt was a code purple late this AM for a brief episode of being verbally unresponsive. No LOC and eyes were open, however pt stopped interacting with staff. This happened shortly after therapy while pt was up and in the chair. They moved pt to bed and it was reported that he started to answer at that time. When I arrived at bedside, pt was lying in bed being assessed for possible CVA. He had no focal deficits and was answering questions appropriately. BP at time of event was 107 systolic with HR around 50. BS was 170s. Pt states that he fee ls like he was overly fatigued from PT and now that he is lying down, he feel much better, although still fatigued. He is able to tell me why he is in the hospital and the events of the day yesterday and today. He is making jokes. Return to bedside a few hours later and pt states he feels much better, although with pain to his incision site. Awaiting lunch. Pt denies fever, SOB, chest pain, abd pain, n/v/c/d, LE pain or swelling. No further issues per nursing. Review of Systems Review of Systems: Pertinent positives and negatives reviewed in HPI--all others negative Physical Exam Constitutional: WD/WN, vitals as above Eyes: normal visual stinson by confrontation and + anicteric sclerae Neck: normal visual inspection and trachea midline Respiratory: normal respiratory effort, lungs clear to auscultation Cardiovascular: Rate/Rhythm: regular rhythm and + bradycardic Extremities: no edema Gastrointestinal (Abdomen): Inspection/Auscultation: abdomen not distended Percussion/Palpation: abdomen soft; abdomen nontender Musculoskeletal: Head/Neck/Chest: normocephalic and head atraumatic peripheral pulses intact Skin: no rashes, warm and dry Neurologic: CN's II-XI intact bilaterally and awake; not confused Speech / Cognition: normal speech, no expressive aphasia and normal cognition Psychiatric: A+Ox3, euthymic affect Results & Data Results & Data ([facility]) Vital Signs (Past 12 Hours) Vital Signs Temp Pulse Pulse Resp BP BP Pulse Ox 07/05/20 08:00 36.7 C 58 L 55 L 20 118/56 L 99 07/05/20 04:24 36.4 C L 59 L 18 124/63 98 PG Care Time/CCT Total # of Minutes Spent Total Time Spent with Patient: Total time spent is greater than 50% in coordination of care (as documented) at patient's floor/unit and/or counseling patient: Coding Level of Care Code 60069 Subseq Hosp Care Lvl 3 Diagnoses Bradycardia R00.1 Frequent PVCs I49.3 Pulmonary hypertension I27.20 Aortic stenosis I35.0 Neurogenic claudication due to lumbar spinal stenosis M48.062 GERD (gastroesophageal reflux disease) K21.9 Gout M10.9 Hypertension I10 Hyperlipidemia E78.5 DVT prophylaxis Z29.9 Hypomagnesemia E83.42
[2020-07-05] MEDS: MAGNESIUM SULFATE / D5W 1 GM/100 ML BAG IV SCH ×2 (16:39→17:46)
[2020-07-05] MEDS: ATORVASTATIN 40 MG TAB PO SCH (21:12)
[2020-07-05] MEDS: ASPIRIN 81 MG ECTAB PO SCH (21:12)
[2020-07-05] MEDS: DOCUSATE SODIUM/SENNA 50/8.6MG TAB PO SCH (21:13)
[2020-07-06] MEDS: POLYETHYLENE (MIRALAX) 17 GM PACK PO SCH ×4 (01:22→18:13)
[2020-07-06 07:34] LABS: Basophils # (auto) 0.03 K/uL (0-0.2); Basophils % (auto) 0.2 %; Eosinophils % (auto) 0.7 %; Hematocrit (blood only) 32.2 % (42-52); Hemoglobin 10.4 g/dL (14.0-18.0); Immature Granulocytes # (auto) 0.06 K/uL (0.00-0.02); Immature Granulocytes % (auto) 0.4 %; Lymphocytes # (auto) 2.47 K/uL (1.2-3.4); Lymphocytes % (auto) 17.7 %; Mean Corpuscular Hemoglobin 29.3 pg (25-34); Mean Corpuscular Hgb Conc 32.3 g/dL (32-36); Mean Corpuscular Volume 90.7 fL (80-100); Monocytes # (auto) 1.41 K/uL (0.11-0.59); Monocytes % (auto) 10.1 %; Neutrophils # (auto) 9.88 K/uL (1.4-6.5); Neutrophils % (auto) 70.9 %; Platelet Count 206 K/uL (130-400); RDW Coefficient of Variation 14.3 % (11.5-14.5); RDW Standard Deviation 47.9 fL (36.4-46.3); Red Blood Count 3.55 M/uL (4.7-6.1); White Blood Count 13.95 K/uL (4.8-10.8)
[2020-07-06] MEDS: BISOPROLOL FUMARATE 5 MG TAB PO SCH (07:36)
[2020-07-06] MEDS: LOSARTAN POTASSIUM 50 MG TAB PO SCH (07:37)
[2020-07-06] MEDS: SODIUM CHLORIDE 0.9% 1000ML 1,000 ML IV SCH (08:11)
[2020-07-06 08:13] LABS: Calcium 8.5 mg/dl (8.5-10.1); Creatinine Clr Calc Pharmacy 80.3 ml/min; Est GFR (African American) 88.4; Est GFR (Non-African American) 76.3; Magnesium 2.1 mg/dl (1.8-2.4); Potassium 4.1 mmol/L (3.5-5.1)
--- NOTE | 2020-07-06 08:26 | Cardiology Progress Note ---
Date of Service July 06, 2020 Assessment & Plan (1) Bradycardia: He has a low pulse due to ventricular bigeminy, his sinus rate has not been very low. My approach would be to try to suppress the PVCs. He had been on a beta-mahsa as an outpatient, that was held the day of surgery but he did receive it yesterday morning and his PVCs dramatically improved although yesterday and most of the night. This morning his PVCs increased somewhat consistent with beta-mahsa metabolism. Since this was his first dose in several days the increase this morning may represent a somewhat low beta-mahsa level, therefore I would not change the dose at this time. If he continues to have an increase in beta blockers in the morning after his medications we can give him twice daily dosing. This is an excellent response to beta-blockade and I doubt we will have to do anything further for his arrhythmia. I would continue the current dose of beta-mahsa and monitor his rhythm. (2) Frequent PVCs: He had frequent premature ventricular beats, often in a pattern of bigeminy here, which so far appears to be adequately suppressed on beta- blockade. He has had no ventricular tachycardia identified here and no hemodynamic symptoms historically or here related to the arrhythmia. The origin looks like the right ventricular outflow tract and these arrhythmias often respond to beta-blockade. If that does not work in the future and the rhythm needs to be treated (if he develops symptoms or left ventricular dysfunction) then ablation would be an option. I would not consider that at this point. (3) Aortic stenosis: He has aortic stenosis which has been moderate in the past and he follows with cardiology elsewhere for this. I would not evaluate further here and this is probably unrelated to his arrhythmia. Admission and Anticipated Discharge Date Admission Date: July 04, 2020 Subjective He is feeling well today other than some incisional discomfort. After discussing his arrhythmia with him he has a limited understanding despite trying to explain to him on several occasions. Fortunately it is under good control. Physical Exam Physical Exam: Constitutional: Alert, cooperative and in no distress. Neck: No jugular venous distention, carotid pulses are normal and equal bilaterally without bruits. Pulmonary: Clear to auscultation bilaterally. Cardiac: Regular rhythm with premature beats and a grade 2/6 crescendo decrescendo murmur at the base, no gallop or rub. Abdomen: Soft, nontender with normal bowel sounds. Extremities: No edema. Distal pulses intact. Skin: No rash, ecchymoses or petechiae. Results & Data ([facility]) Vital Signs (Past 12 Hours) Vital Signs Temp Pulse Pulse Resp BP BP Pulse Ox 07/06/20 08:00 36.5 C 67 16 125/60 96 07/06/20 03:19 36.8 C 67 18 135/72 97 07/05/20 23:26 61 07/05/20 23:17 36.6 C 66 18 131/65 97 Laboratory Results CBC 07/06/20 Range/Units 07:15 WBC 13.95 H (4.8-10.8) K/uL RBC 3.55 L (4.7-6.1) M/uL Hgb 10.4 L (14.0-18.0) g/dL Hct 32.2 L (42-52) % Plt Count 206 (130-400) K/uL Neut # (Auto) 9.88 H (1.4-6.5) K/uL Lymph # (Auto) 2.47 (1.2-3.4) K/uL Pope # (Auto) 1.41 H (0.11-0.59) K/uL Eos # (Auto) 0.10 (0-0.5) K/uL Baso # (Auto) 0.03 (0-0.2) K/uL Comprehensive Metabolic Panel 07/06/20 Range/Units 07:15 Sodium 138 (136-145) mmol/L Potassium 4.1 (3.5-5.1) mmol/L Chloride 107 (98-107) mmol/L Carbon Dioxide 24 (21-32) mmol/L BUN 21 H (7-18) mg/dl Creatinine 0.94 (0.6-1.4) mg/dl Glucose 142 H (70-99) mg/dl Calcium 8.5 (8.5-10.1) mg/dl Intake and Output 07/05/20 07/06/20 07/06/20 22:59 06:59 14:59 Intake Total 755.833 / 2178.333 460 / 2178.333 Output Total 230 / 950 620 / 950 Balance 525.833 / 1228.333 -160 / 1228.333 Intake: IV 55.833 / 1118.333 100 / 1118.333 MAGNESIUM SULFATE / D5W 1 gm In 55.833 / 155.833 100 / 155.833 100 ml @ 50 mls/hr IV Q2H JOSE Rx#:[id number] Oral 700 / 1060 360 / 1060 Output: Urine 475 / 475 Estimated Blood Loss 100 / 100 Drain Output 130 / 375 145 / 375 Lower Back LIBRADO 130 / 375 145 / 375 Other: # Unmeasured Voids 1 Weight 113.4 kg Diagnostic Findings Telemetry: After receiving his morning beta-blockade yesterday his PVCs were dramatically suppressed throughout the day and evening, this morning he had some increase in PVCs although not to the point where he had them before. PG Care Time/CCT Total # of Minutes Spent Total Time Spent with Patient: Total time spent is greater than 50% in coordination of care (as documented) at patient's floor/unit and/or counseling patient: Coding Level of Care Code 77596 Subseq Hosp Care Lvl 2 Diagnoses Bradycardia R00.1 Frequent PVCs I49.3 Aortic stenosis I35.0
--- NOTE | 2020-07-06 10:29 | Orthopedic Progress Note ---
Date of Service July 06, 2020 Assessment & Plan (1) Neurogenic claudication due to lumbar spinal stenosis: Admission and Anticipated Discharge Date Admission Date: July 04, 2020 At this time we will continue physical therapy monitor his LIBRADO output. Like him transferred to the orthopedic floor when cleared by medicine. Hopefully he will progress throughout the weekend and discharge home Wednesday. Subjective Back pain controlled leg symptoms markedly improved. Physical Exam Physical Exam: Patient is ambulating well strength intact. Results & Data ([facility]) Vital Signs (Past 12 Hours) Vital Signs Temp Pulse Pulse Resp BP BP Pulse Ox 07/06/20 08:00 36.5 C 67 16 125/60 96 07/06/20 03:19 36.8 C 67 18 135/72 97 07/05/20 23:26 61 07/05/20 23:17 36.6 C 66 18 131/65 97
--- NOTE | 2020-07-06 13:21 | Hospitalist Progress Note ---
Date of Service July 06, 2020 Assessment & Plan (1) Bradycardia: Noted to have bradycardia when vital signs were taken on the Dinamap, but having frequent bigeminy on ECG-most likely PVCs or not transmitting and therefore making heart rate appear lower than it is. Patient is completely asymptomatic with this. He did not take his Zebeta on the morning of surgery-we will hold this if heart rate less than 60 on telemetry, however the frequent PVCs may be helped by adding the beta-mahsa back on -Transferred from third floor down to PCU for closer monitoring on telemetry If has continued frequent PVCs or bigeminy, appreciate any further recommendations by cardiology -Follow electrolytes and replace as needed Cardiology feels bradycardia is related to bigeminy and is continuing beta mahsa No change in dose If ongoing issues, may need t/c ablation but felt not needed at this time Episode this AM: resolved quickly and spontaneously without repeat, continue to monitor CBC this AM was with slight decrease, but not unexpected or marked in the post- op setting (2) Frequent PVCs: As above (3) Pulmonary hypertension: Noted in history No acute issues (4) Aortic stenosis: Noted to be moderate on most recent echo from 09/2019 by his job order clerk notes No acute issues (5) Neurogenic claudication due to lumbar spinal stenosis: Status post L2-S1 decompression and fusion by Dr. Dillon on 07/04 Postoperative care as per orthopedics EBL 400 mL's Checked CBC today urgently during bradycardic episode and hemoglobin slightly down from preoperative value Slight decrease, monitor LIBRADO drain in place Ford catheter remains in place Pain control, antiemetics, bowel regimen (6) GERD (gastroesophageal reflux disease): Listed as a diagnosis in his chart but not on medications for this Follow along (7) Gout: No acute issues Continue home allopurinol 300 mg 2 times a week (8) Hypertension: Blood pressures are within normal limits -Continue Zebeta as above with hold parameters Continue home losartan 50 mg daily (9) Hyperlipidemia: Continue home statin (10) DVT prophylaxis: Thigh-high SCDs, no chemical prophylaxis due to spinal surgery (11) Hypomagnesemia: Replace and monitor Admission and Anticipated Discharge Date Admission Date: July 04, 2020 Subjective Pt states he has been ambulating around the room this morning quite a bit and is very tired. "I just need to rest." He states that he is not going to be doing PT today due to this. He states that he feels that he has "done enough" today. Tolerating PO without issue. Pt denies fever, SOB, chest pain, abd pain, n/v/c/d, LE pain or swelling. Pt states that the episode yesterday was that he was just over tired and "didn't want to talk to anyone". He states he remembers the entire episode. Review of Systems Review of Systems: Pertinent positives and negatives reviewed in HPI--all others negative Physical Exam Constitutional: WD/WN, vitals as above Eyes: normal visual stinson by confrontation and + anicteric sclerae Neck: normal visual inspection and trachea midline Respiratory: normal respiratory effort, lungs clear to auscultation Cardiovascular: Rate/Rhythm: regular rhythm and + bradycardic Extremities: no edema Gastrointestinal (Abdomen): Inspection/Auscultation: abdomen not distended Percussion/Palpation: abdomen soft; abdomen nontender Musculoskeletal: Head/Neck/Chest: normocephalic and head atraumatic Skin: no rashes, warm and dry Neurologic: CN's II-XI intact bilaterally and awake; not confused Speech / Cognition: normal speech, no expressive aphasia and normal cognition Psychiatric: A+Ox3, euthymic affect Results & Data Results & Data ([facility]) Vital Signs (Past 12 Hours) Vital Signs Temp Pulse Pulse Resp BP Pulse Ox 07/06/20 12:00 36.4 C L 62 20 138/77 100 07/06/20 08:00 36.5 C 67 16 125/60 96 07/06/20 03:19 36.8 C 67 18 135/72 97 PG Care Time/CCT Total # of Minutes Spent Total Time Spent with Patient: Total time spent is greater than 50% in coordination of care (as documented) at patient's floor/unit and/or counseling patient: Coding Level of Care Code 78251 Subseq Hosp Care Lvl 3 Diagnoses Bradycardia R00.1 Frequent PVCs I49.3 Pulmonary hypertension I27.20 Aortic stenosis I35.0 Neurogenic claudication due to lumbar spinal stenosis M48.062 GERD (gastroesophageal reflux disease) K21.9 Gout M10.9 Hypertension I10 Hyperlipidemia E78.5 DVT prophylaxis Z29.9 Hypomagnesemia E83.42
[2020-07-06] MEDS: DOCUSATE SODIUM/SENNA 50/8.6MG TAB PO SCH (20:08)
[2020-07-06] MEDS: ATORVASTATIN 40 MG TAB PO SCH (20:09)
[2020-07-06] MEDS: ASPIRIN 81 MG ECTAB PO SCH (20:09)
[2020-07-07] MEDS: POLYETHYLENE (MIRALAX) 17 GM PACK PO SCH ×4 (00:36→17:48)
[2020-07-07] MEDS: LOSARTAN POTASSIUM 50 MG TAB PO SCH (08:13)
[2020-07-07] MEDS: BISOPROLOL FUMARATE 5 MG TAB PO SCH (08:13)
--- NOTE | 2020-07-07 09:14 | Orthopedic Progress Note ---
Date of Service July 07, 2020 Assessment & Plan (1) Neurogenic claudication due to lumbar spinal stenosis: Hopefully, pt can be transferred to ortho floor today. Continue with physical therapy. DVT prophylaxis is TEDS/SCDs. Maintain LIBRADO drain. If pt continues to remain medically stable, would consider discharge within the next 24-48 hours. Admission and Anticipated Discharge Date Admission Date: July 04, 2020 Supervising Physician Co-Signing Physician Notes Dr. Anup Dillon Subjective Ed is POD #3 multilevel lumbar decompression and fusion. He is currently on tele floor due to post op bradycardia. He denies SOB, CP. LIBRADO output is 40 cc last shift. Denies radicular leg pain. Back pain is controlled. Review of Systems Review of Systems: All systems reviewed & are unremarkable except as noted in HPI & below Physical Exam Physical Exam: Lying in bed. No acute distress. A & O x3 Constitutional: WD/WN, vitals as above Eyes: normal visual stinson by confrontation ENMT: external ear and nose normal, oropharynx normal Neck: normal visual inspection Respiratory: normal respiratory effort Cardiovascular: Vessels: dorsalis pedis pulses present Extremities: normal capillary refill Chest (Breasts): Chest: normal inspection of chest Gastrointestinal (Abdomen): Inspection/Auscultation: abdomen normal to inspection Musculoskeletal: Extremities: extremities normal to inspection and strength 5/5 throughout Skin: no rashes, warm and dry Neurologic: normal touch/pain/proprioception and moves all extremities Psychiatric: A+Ox3, euthymic affect Results & Data ([facility]) Vital Signs (Past 12 Hours) Vital Signs Temp Pulse Resp BP Pulse Ox 07/07/20 07:57 36.9 C 60 18 149/81 H 97 07/07/20 03:39 36.8 C 52 L 18 139/79 96 07/06/20 23:25 36.9 C 61 19 149/77 H 97
--- NOTE | 2020-07-07 13:52 | Hospitalist Progress Note ---
Date of Service July 07, 2020 Assessment & Plan (1) Bradycardia: Noted to have bradycardia when vital signs were taken on the Dinamap, but having frequent bigeminy on ECG-most likely PVCs or not transmitting and therefore making heart rate appear lower than it is. Patient is completely asymptomatic with this. He did not take his Zebeta on the morning of surgery-we will hold this if heart rate less than 60 on telemetry, however the frequent PVCs may be helped by adding the beta-mahsa back on -Transferred from third floor down to PCU for closer monitoring on telemetry If has continued frequent PVCs or bigeminy, appreciate any further recommendations by cardiology -Follow electrolytes and replace as needed Cardiology feels bradycardia is related to bigeminy and is continuing beta mahsa No change in dose If ongoing issues, may need t/c ablation but felt not needed at this time (2) Frequent PVCs: As above (3) Pulmonary hypertension: Noted in history No acute issues (4) Aortic stenosis: Noted to be moderate on most recent echo from 09/2019 by his e m assembler notes No acute issues (5) Neurogenic claudication due to lumbar spinal stenosis: Status post L2-S1 decompression and fusion by Dr. Dillon on 07/04 Postoperative care as per orthopedics EBL 400 mL's Checked CBC today urgently during bradycardic episode and hemoglobin slightly down from preoperative value Slight decrease, monitor LIBRADO drain in place Ford catheter remains in place Pain control, antiemetics, bowel regimen (6) GERD (gastroesophageal reflux disease): Listed as a diagnosis in his chart but not on medications for this Follow along (7) Gout: No acute issues Continue home allopurinol 300 mg 2 times a week (8) Hypertension: Blood pressures are within normal limits -Continue Zebeta as above with hold parameters Continue home losartan 50 mg daily (9) Hyperlipidemia: Continue home statin (10) DVT prophylaxis: Thigh-high SCDs, no chemical prophylaxis due to spinal surgery (11) Hypomagnesemia: Replace and monitor Admission and Anticipated Discharge Date Admission Date: July 04, 2020 Subjective No new concerns today. Tolerating PO without issue. Pt denies fever, SOB, chest pain, abd pain, n/v/c/d, LE pain or swelling. Review of Systems Review of Systems: Pertinent positives and negatives reviewed in HPI--all others negative Physical Exam Constitutional: WD/WN, vitals as above Eyes: normal visual stinson by confrontation and + anicteric sclerae Neck: normal visual inspection and trachea midline Respiratory: normal respiratory effort, lungs clear to auscultation Cardiovascular: Rate/Rhythm: regular rhythm and + bradycardic Extremities: no edema Gastrointestinal (Abdomen): Inspection/Auscultation: abdomen not distended Percussion/Palpation: abdomen soft; abdomen nontender Musculoskeletal: Head/Neck/Chest: normocephalic and head atraumatic Skin: no rashes, warm and dry Neurologic: CN's II-XI intact bilaterally and awake; not confused Speech / Cognition: normal speech, no expressive aphasia and normal cognition Psychiatric: A+Ox3, euthymic affect Results & Data Results & Data ([facility]) Vital Signs (Past 12 Hours) Vital Signs Temp Pulse Pulse Resp BP Pulse Ox 07/07/20 11:22 36.9 C 63 18 130/68 99 07/07/20 08:00 64 07/07/20 07:57 36.9 C 60 18 149/81 H 97 07/07/20 03:39 36.8 C 52 L 18 139/79 96 PG Care Time/CCT Total # of Minutes Spent Total Time Spent with Patient: Total time spent is greater than 50% in coordination of care (as documented) at patient's floor/unit and/or counseling patient: Coding Level of Care Code 06395 Inpt Consult Level 4 Diagnoses Bradycardia R00.1 Frequent PVCs I49.3 Pulmonary hypertension I27.20 Aortic stenosis I35.0 Neurogenic claudication due to lumbar spinal stenosis M48.062 GERD (gastroesophageal reflux disease) K21.9 Gout M10.9 Hypertension I10 Hyperlipidemia E78.5 DVT prophylaxis Z29.9 Hypomagnesemia E83.42
[2020-07-07] MEDS: ASPIRIN 81 MG ECTAB PO SCH (20:50)
[2020-07-07] MEDS: ATORVASTATIN 40 MG TAB PO SCH (20:50)
[2020-07-07] MEDS: allopurinoL 300 MG TAB PO PRN (20:51)
[2020-07-07] MEDS: DOCUSATE SODIUM/SENNA 50/8.6MG TAB PO SCH (20:51)
[2020-07-08] MEDS: POLYETHYLENE (MIRALAX) 17 GM PACK PO SCH ×4 (01:07→17:58)
[2020-07-08] MEDS: allopurinoL 300 MG TAB PO PRN (08:47)
[2020-07-08] MEDS: LOSARTAN POTASSIUM 50 MG TAB PO SCH (08:47)
[2020-07-08] MEDS: BISOPROLOL FUMARATE 5 MG TAB PO SCH ×2 (08:47→21:12)
[2020-07-08 08:52] LABS: Basophils # (auto) 0.02 K/uL (0-0.2); Basophils % (auto) 0.1 %; Eosinophils # (auto) 0.07 K/uL (0-0.5); Eosinophils % (auto) 0.5 %; Hematocrit (blood only) 30.7 % (42-52); Hemoglobin 10.1 g/dL (14.0-18.0); Immature Granulocytes # (auto) 0.07 K/uL (0.00-0.02); Immature Granulocytes % (auto) 0.5 %; Lymphocytes # (auto) 2.03 K/uL (1.2-3.4); Lymphocytes % (auto) 13.9 %; Mean Corpuscular Hemoglobin 29.8 pg (25-34); Mean Corpuscular Hgb Conc 32.9 g/dL (32-36); Mean Corpuscular Volume 90.6 fL (80-100); Mean Platelet Volume 11.1 fL (7.4-10.4); Monocytes # (auto) 1.62 K/uL (0.11-0.59); Monocytes % (auto) 11.1 %; Neutrophils # (auto) 10.76 K/uL (1.4-6.5); Neutrophils % (auto) 73.9 %; Platelet Count 234 K/uL (130-400); RDW Coefficient of Variation 14.1 % (11.5-14.5); RDW Standard Deviation 46.8 fL (36.4-46.3); Red Blood Count 3.39 M/uL (4.7-6.1); White Blood Count 14.57 K/uL (4.8-10.8)
[2020-07-08 09:20] LABS: BUN Creatinine Ratio 16.2 (10-20); Calcium 8.6 mg/dl (8.5-10.1); Creatinine Clr Calc Pharmacy 79.4 ml/min; Est GFR (African American) 87.3; Est GFR (Non-African American) 75.3; Potassium 3.9 mmol/L (3.5-5.1)
--- NOTE | 2020-07-08 09:47 | Hospitalist Progress Note ---
Date of Service July 08, 2020 Assessment & Plan (1) Bradycardia: Cl is an 80-year-old male with a notable history of moderate aortic stenosis on Echo 09/2019, gout, GERD, HTN, and HLD who is now POD-4 s/p L2-S1 decompression and fusion for spinal stenosis, subsequently consulted to medicine for bradycardia developed in the perioperative period. He has been hemodynamically stable throughout his admission. Lumbar Spinal Stenosis s/p L2-S1 Decompression and Fusion on 07/04 - Now POD-4 from L2-S1 decompression and fusion on 07/[address] Dillon -- EBL approx. 400cc - Followed by orthopedics -- appreciate recommendations - Plan to leave in LIBRADO-drain until tomorrow - OOB to Chair as tolerated - PT/OT - Continue with pain control, antiemetics, and bowel regimen as needed - Hgb 10.1 / Hct 30.7 this AM -- admission Hgb 12.9 / 10.6 on 07/04 - CBC qAM for perioperative blood loss monitoring Bradycardia with Frequent PVCs - During his postoperative assessment, was noted to have slow HR 2/2 frequent PVCs. Reports being asymptomatic - Of note, his beta-mahsa (Zebeta) was held the day of surgery - Subsequently transferred to PCU for telemetry monitoring - Cardiology following -- appreciate input and recs: - Low pulse thought to be primarily d/t ventricular bigeminy -- likely originating from the RVOT area - Recommended continuing suppressing PVCs with beta-blockade - No ventricular tachycardia identified while here -- no h/o hemodynamic instability while here - As the origin begins to appear within the RVOT given the electrical pattern, can consider ablation if develops symptoms from arrhythmia or LV dysfunction - Today, did develop 1x episode of symptomatic bradycardia (HR ~40s) with "staring into space" and significant weakness - Can consider reducing bisoprolol dose prior to d/c -- await recommendations from cardiology - Anticipate event monitor upon discharge for further evaluation Gout - Based on patient's history and physical exam, does appear to be having an active flare in the R ankle - Continue with allopurinol 300mg PO 2x/week -- upon d/c, consider resuming daily rather than twice weekly - Ice and heat pads as tolerated for now over affected area -- can consider colchicine / NSAID should symptoms remain unresolved by tomorrow Chronic Medical Problems - : Noted to be moderate on most recent echo from 09/2019 per Cardiology - GERD: Not on medications for this, but listed as dx -- continue to follow - HTN: Blood pressures are within normal limits; continue Zebeta as above with hold parameters + home losartan 50 mg daily - Pulmonary HTN: Noted-- continue to follow - HLD: Continue statin Dispo: PCU for CCM F/E/N: Regular diet PPX: Thigh-high SCDs Code: Full code (2) Frequent PVCs: (3) Pulmonary hypertension: (4) Aortic stenosis: (5) Neurogenic claudication due to lumbar spinal stenosis: (6) GERD (gastroesophageal reflux disease): (7) Gout: (8) Hypertension: (9) Hyperlipidemia: (10) DVT prophylaxis: (11) Hypomagnesemia: Admission and Anticipated Discharge Date Admission Date: July 04, 2020 Supervising Physician Co-Signing Physician Notes I personally examined the patient and verified all blood points of history and exam, discussed case, and agree with decision making with Dr Nicholas feeling better by the time we see him - but responded nearly immediately to "code purple" - staring into space and tyra to mid 40's denies lightheaded or dizzy at the time, no pain at the time does have episodes like this at home from time to time too - hard to quantify but ?1-2x/wk probably vitals noted nad heent nc at [facility] cardio reg no r/m/g breathing unlabored. incision in back dressed, no erythema or exudate noted. R ankle swollen bradycardia - while normally from ectopy - this episode appeared more sinus tyra. continue to follow. appreciate cardiology input as it relates to this - although not clear if suppressing PVCs would then in turn provoke more incidents like now - given that he had more of a sinus tyra this time. continue to follo w. anticipate setting up rhythm monitoring for home. stable at this time. otherwise as above Subjective No acute events overnight. This morning, patient does report some pain in his right ankle (an area of his medial malleolus) as well as the top of his foot. He attributes these pains to gout, which he gets flares of about every 6 months. Otherwise, he reports some stiffness in his back, but no direct pain. Otherwise denies any chest pains, palpitations, or shortness of breath. UPDATE: Approximately 10:45 AM, patient was working with a physical therapist when he had an episode of weakness and "staring off into space." Initially, they were unable to get his attention. Around that time, his blood pressure was noted to be stable in the 110/70s, but he was notably bradycardic in the mid 40s. Denied significant pain. After sitting down, he became more responsive and felt that his energy was returning. Pulse returned to the 60s. Denied any chest pain, chest pressure, shortness of breath. Of note, he did become nauseous a few minutes later and vomited x1. Given Zofran PRN. Review of Systems Respiratory: no cough and no dyspnea Cardiovascular: no chest pain and no palpitations Gastrointestinal: as per Subjective / HPI; no abdominal pain Musculoskeletal: Endorses mild back pain. Endorses pain in his right foot. No new rashes or redness. Physical Exam Constitutional: Well-appearing 80-year-old gentleman who is lying back in his hospital bed, attentive and engaged during our conversation with perhaps some mild speech latency. He speaks in full sentences and is in no acute distress. Respiratory: Good respiratory effort with symmetric expansion of the chest. Lungs are clear to auscultation bilaterally without any crackles or wheezes. Cardiovascular: Normal rate and regular rhythm. S1 and S2 are present without any murmurs rubs or gallops. Gastrointestinal (Abdomen): Normoactive bowel sounds. Abdomen is soft, nontender, and nondistended on palpation. No appreciable organomegaly. Musculoskeletal: Visual examination of the right lower extremity does reveal perhaps mild edema around the medial malleolus, but no erythema or rashes. There is moderate tenderness to palpation over the medial malleolus and around the circumference of the ankle. Warm to touch compared to his surrounding skin. Dorsalis pedis pulses 2+. Results & Data Results & Data ([facility]) Vital Signs (Past 12 Hours) Vital Signs Temp Pulse Pulse Resp BP Pulse Ox 07/08/20 08:00 63 07/08/20 07:14 37.0 C 62 18 132/55 L 97 07/08/20 03:23 37.2 C 66 18 119/73 97 07/07/20 23:57 37.2 C 69 18 143/73 H 96 Resident Activity Tracking Resident Involvement: Resident Care Provided Care Provided: [facility] Medicine
--- NOTE | 2020-07-08 10:31 | Cardiology Progress Note ---
Date of Service July 08, 2020 Assessment & Plan (1) Bradycardia: He had a low pulse due to ventricular bigeminy, his sinus rate has not been very low. My approach would be to continue to suppress the PVCs. He had been on a beta-mahas as an outpatient, that was held the day of surgery but he did receive it subsequently and his PVCs dramatically improved although there appears to be a consistent finding that in the morning his PVCs increased somewhat consistent with beta-mahsa metabolism. I would recommend twice daily dosing at this point as he should be at steady state and we are still seeing this effect. This is an excellent response to beta-blockade and I doubt we will have to do anything further for his arrhythmia, other than adjust the dosing schedule. (2) Frequent PVCs: He had frequent premature ventricular beats, often in a pattern of bigeminy here, which so far appears to be adequately suppressed on beta- blockade. He has had no ventricular tachycardia identified here and no hemodynamic symptoms historically or here related to the arrhythmia. The origin looks like the right ventricular outflow tract and these arrhythmias often respond to beta-blockade. If that does not work in the future and the rhythm needs to be treated (if he develops symptoms or left ventricular dysfunction) then ablation would be an option. I would not consider that at this point. (3) Aortic stenosis: He has aortic stenosis which has been moderate in the past and he follows with cardiology elsewhere for this. I would not evaluate further here and this is probably unrelated to his arrhythmia. Admission and Anticipated Discharge Date Admission Date: July 04, 2020 Subjective He is feeling better today, he tells me his gout is improved and he believes he will be leaving the hospital today. He is working with physical therapy at the time my evaluation. Physical Exam Physical Exam: Constitutional: Alert, cooperative and in no distress. Neck: No jugular venous distention, carotid pulses are normal and equal bilaterally without bruits. Pulmonary: Clear to auscultation bilaterally. Cardiac: Regular rhythm with premature beats and a grade 2/6 crescendo decre scendo murmur at the base, no gallop or rub. Abdomen: Soft, nontender with normal bowel sounds. Extremities: No edema. Distal pulses intact. Skin: No rash, ecchymoses or petechiae. Results & Data ([facility]) Vital Signs (Past 12 Hours) Vital Signs Temp Pulse Pulse Resp BP Pulse Ox 07/08/20 08:00 63 07/08/20 07:14 37.0 C 62 18 132/55 L 97 07/08/20 03:23 37.2 C 66 18 119/73 97 07/07/20 23:57 37.2 C 69 18 143/73 H 96 Laboratory Results CBC 07/08/20 Range/Units 08:19 WBC 14.57 H (4.8-10.8) K/uL RBC 3.39 L (4.7-6.1) M/uL Hgb 10.1 L (14.0-18.0) g/dL Hct 30.7 L (42-52) % Plt Count 234 (130-400) K/uL Neut # (Auto) 10.76 H (1.4-6.5) K/uL Lymph # (Auto) 2.03 (1.2-3.4) K/uL [place] # (Auto) 1.62 H (0.11-0.59) K/uL Eos # (Auto) 0.07 (0-0.5) K/uL Baso # (Auto) 0.02 (0-0.2) K/uL Comprehensive Metabolic Panel 07/08/20 Range/Units 08:19 Sodium 135 L (136-145) mmol/L Potassium 3.9 (3.5-5.1) mmol/L Chloride 102 (98-107) mmol/L Carbon Dioxide 24 (21-32) mmol/L BUN 15 (7-18) mg/dl Creatinine 0.95 (0.6-1.4) mg/dl Glucose 181 H (70-99) mg/dl Calcium 8.6 (8.5-10.1) mg/dl Intake and Output 07/07/20 07/08/20 07/08/20 22:59 06:59 14:59 Intake Total 240 / 560 200 / 560 Output Total 510 / 1120 390 / 1120 Balance -270 / -560 -190 / -560 Intake: Oral 240 / 560 200 / 560 Output: Urine 450 / 960 350 / 960 Drain Output 60 / 160 40 / 160 Lower Back LIBRADO 60 / 160 40 / 160 Other: Weight 113.2 kg Diagnostic Findings Telemetry: For the most part his PVCs under good control but he still has an increase in ectopy leading up to his morning dose. PG Care Time/CCT Total # of Minutes Spent Total Time Spent with Patient: Total time spent is greater than 50% in coordination of care (as documented) at patient's floor/unit and/or counseling patient: Coding Level of Care Code 31672 Subseq Hosp Care Lvl 2 Diagnoses Bradycardia R00.1 Frequent PVCs I49.3 Aortic stenosis I35.0
[2020-07-08] MEDS: ONDANSETRON INJ 2 MG/ML 2 ML VIAL IV SCH ×2 (11:04→16:27)
--- NOTE | 2020-07-08 14:58 | Orthopedic Progress Note ---
Date of Service July 08, 2020 Assessment & Plan (1) Neurogenic claudication due to lumbar spinal stenosis: Admission and Anticipated Discharge Date Admission Date: July 04, 2020 At this time we will maintain the LIBRADO drain another 24 hours. He will ambulate and transfer to chair as tolerated. He is limited mostly with pain in his foot secondary to gout. Subjective Patient's back pain is controlled no radicular symptoms improved. He is struggling mostly with gout to the right foot. Physical Exam Physical Exam: On exam is good strength testing is comfortable at this time. Results & Data ([facility]) Vital Signs (Past 12 Hours) Vital Signs Temp Pulse Pulse Resp BP Pulse Ox 07/08/20 11:47 37.0 C 64 18 119/65 97 07/08/20 11:10 70 18 112/56 L 07/08/20 11:09 37.1 C 64 18 100/62 97 07/08/20 10:45 36.8 C 66 14 111/69 99 07/08/20 08:00 63 07/08/20 07:14 37.0 C 62 18 132/55 L 97 07/08/20 03:23 37.2 C 66 18 119/73 97
--- NOTE | 2020-07-08 18:48 | Billing Data ---
Date of Service July 08, 2020 Coding Level of Care Code 81937 Subseq Hosp Care Lvl 3
[2020-07-08] MEDS ORDERED: ACETAMINOPHEN 325 MG TAB PO PRN (18:54)
[2020-07-08] MEDS: ATORVASTATIN 40 MG TAB PO SCH (21:11)
[2020-07-08] MEDS: DOCUSATE SODIUM/SENNA 50/8.6MG TAB PO SCH (21:12)
[2020-07-08] MEDS: ASPIRIN 81 MG ECTAB PO SCH (21:12)
[2020-07-09] MEDS: ONDANSETRON INJ 2 MG/ML 2 ML VIAL IV SCH ×5 (00:20→22:44)
[2020-07-09] MEDS: POLYETHYLENE (MIRALAX) 17 GM PACK PO SCH ×4 (00:21→18:27)
[2020-07-09 07:25] LABS: Basophils # (auto) 0.02 K/uL (0-0.2); Basophils % (auto) 0.2 %; Eosinophils % (auto) 1.6 %; Hemoglobin 9.4 g/dL (14.0-18.0); Immature Granulocytes # (auto) 0.06 K/uL (0.00-0.02); Immature Granulocytes % (auto) 0.5 %; Lymphocytes # (auto) 2.49 K/uL (1.2-3.4); Lymphocytes % (auto) 19.4 %; Mean Corpuscular Hemoglobin 30.1 pg (25-34); Mean Corpuscular Hgb Conc 33.6 g/dL (32-36); Mean Corpuscular Volume 89.7 fL (80-100); Mean Platelet Volume 10.7 fL (7.4-10.4); Monocytes # (auto) 1.49 K/uL (0.11-0.59); Monocytes % (auto) 11.6 %; Neutrophils # (auto) 8.59 K/uL (1.4-6.5); Neutrophils % (auto) 66.7 %; Platelet Count 224 K/uL (130-400); RDW Coefficient of Variation 14.1 % (11.5-14.5); RDW Standard Deviation 46.2 fL (36.4-46.3); Red Blood Count 3.12 M/uL (4.7-6.1); White Blood Count 12.85 K/uL (4.8-10.8)
[2020-07-09] MEDS: LOSARTAN POTASSIUM 50 MG TAB PO SCH (07:36)
[2020-07-09] MEDS: allopurinoL 300 MG TAB PO SCH (07:37)
[2020-07-09] MEDS: BISOPROLOL FUMARATE 5 MG TAB PO SCH ×2 (07:37→20:31)
[2020-07-09 07:57] LABS: BUN Creatinine Ratio 17.6 (10-20); Calcium 8.6 mg/dl (8.5-10.1); Creatinine Clr Calc Pharmacy 79.4 ml/min; Est GFR (African American) 87.3; Est GFR (Non-African American) 75.3; Potassium 3.9 mmol/L (3.5-5.1)
--- NOTE | 2020-07-09 09:14 | Cardiology Progress Note ---
Date of Service July 09, 2020 Assessment & Plan (1) Vagal bradycardia: He had an episode yesterday which I believe to be vagal. He describes it as being triggered by extreme pain from walking, he had a sinus bradycardia not heart block and only very transiently. That is not characteristic of beta- mahsa therapy. We use beta-blockers sometimes to treat vagal events, therefore I would not alter his beta mahsa therapy for this event. I did switch him to 2.5 mg twice daily yesterday which is the same daily dose as he was on as an outpatient. I would continue this and he does have a sea foam kiss maker he sees as an outpatient. (2) Bradycardia: He had a low pulse on admission due to ventricular bigeminy, his sinus rate has not been very low except briefly during what I feel is a vagal event. My approach would be to continue to suppress the PVCs. He had been on a beta- mahsa as an outpatient, that was held the day of surgery but he did receive it subsequently and his PVCs dramatically improved although there appears to be a consistent finding that in the morning his PVCs increased somewhat consistent with beta-mahsa metabolism. I would recommend twice daily dosing at this point and we are still seeing this effect but he may not be at steady state on the twice daily dosing which I started yesterday. This is an excellent response to beta-blockade and I doubt we will have to do anything further for his arrhythmia, other than adjust the dosing schedule. (3) Frequent PVCs: He had frequent premature ventricular beats, often in a pattern of bigeminy here, which so far appears to be adequately suppressed on beta- blockade. He has had no ventricular tachycardia identified here and no hemodynamic symptoms historically or here related to the arrhythmia. The origin looks like the right ventricular outflow tract and these arrhythmias often respond to beta-blockade. If that does not work in the future and the rhythm needs to be treated (if he develops symptoms or left ventricular dysfunction) then ablation would be an option. I would not consider that at this point. (4) Aortic stenosis: He has aortic stenosis which has been moderate in the past and he follows with cardiology elsewhere for this. I would not evaluate further here and this is probably unrelated to his arrhythmia. Admission and Anticipated Discharge Date Admission Date: July 04, 2020 Subjective He feels well today, no cardiovascular complaints. He did have an episode yesterday, he describes it to me as walking around the room and with his gout he had extreme pain in his feet and he had to sit down and then he felt lighthead ed. This seems to correspond to the episode he had yesterday. Physical Exam Physical Exam: Constitutional: Alert, cooperative and in no distress. Neck: No jugular venous distention, carotid pulses are normal and equal bilaterally without bruits. Pulmonary: Clear to auscultation bilaterally. Cardiac: Regular rhythm with premature beats and a grade 2/6 crescendo decrescendo murmur at the base, no gallop or rub. Abdomen: Soft, nontender with normal bowel sounds. Extremities: No edema. Distal pulses intact. Skin: No rash, ecchymoses or petechiae. Results & Data ([facility]) Vital Signs (Past 12 Hours) Vital Signs Temp Pulse Pulse Resp BP Pulse Ox 07/09/20 07:20 36.9 C 20 145/70 H 99 07/09/20 07:00 59 L 07/09/20 03:25 36.8 C 62 18 122/69 97 07/09/20 00:00 63 07/08/20 23:23 37.5 C 64 19 144/74 H 98 Laboratory Results CBC 07/09/20 Range/Units 06:51 WBC 12.85 H (4.8-10.8) K/uL RBC 3.12 L (4.7-6.1) M/uL Hgb 9.4 L (14.0-18.0) g/dL Hct 28.0 L (42-52) % Plt Count 224 (130-400) K/uL Neut # (Auto) 8.59 H (1.4-6.5) K/uL Lymph # (Auto) 2.49 (1.2-3.4) K/uL Ward # (Auto) 1.49 H (0.11-0.59) K/uL Eos # (Auto) 0.20 (0-0.5) K/uL Baso # (Auto) 0.02 (0-0.2) K/uL Comprehensive Metabolic Panel 07/08/20 07/09/20 Range/Units 08:19 06:51 Sodium 135 L 135 L (136-145) mmol/L Potassium 3.9 3.9 (3.5-5.1) mmol/L Chloride 102 102 (98-107) mmol/L Carbon Dioxide 24 27 (21-32) mmol/L BUN 15 17 (7-18) mg/dl Creatinine 0.95 0.95 (0.6-1.4) mg/dl Glucose 181 H 139 H (70-99) mg/dl Calcium 8.6 8.6 (8.5-10.1) mg/dl Intake and Output 07/08/20 07/09/20 07/09/20 22:59 06:59 14:59 Intake Total 360 / 1000 200 / 1000 Output Total 315 / 870 380 / 870 Balance 45 / 130 -180 / 130 Intake: Oral 360 / 1000 200 / 1000 Output: Urine 275 / 800 350 / 800 Drain Output 40 / 70 30 / 70 Lower Back LIBRADO 40 / 70 30 / 70 Other: Weight 113.2 kg Diagnostic Findings Telemetry: Sinus rhythm, he still has the PVC pattern with increased frequency in the morning and less during the day. He is not symptomatic with PVCs. I reviewed the episode that he had yesterday and he did have sinus bradycardia into the 40s corresponding to this event, no heart block and no PVCs. PG Care Time/CCT Total # of Minutes Spent Total Time Spent with Patient: Total time spent is greater than 50% in coordination of care (as documented) at patient's floor/unit and/or counseling patient: Coding Level of Care Code 17545 Subseq Hosp Care Lvl 3 Diagnoses Vagal bradycardia R00.1 Bradycardia R00.1 Frequent PVCs I49.3 Aortic stenosis I35.0
--- NOTE | 2020-07-09 11:28 | Orthopedic Progress Note ---
Date of Service July 09, 2020 Assessment & Plan (1) Neurogenic claudication due to lumbar spinal stenosis: Admission and Anticipated Discharge Date Admission Date: July 04, 2020 This time patient is improving appropriately. Dressings will be changed today discontinue his drain today. Ambulate as tolerated. Hopefully be ready to discharge home in the next few days. Subjective Patient's back pain is controlled struggling mostly with right foot pain secondary to gout. But he states it has improved. He is limited with ambulation secondary to his gout. Physical Exam Physical Exam: Patient is in the chair at the bedside. Is eccentric to testing. Appears comfortable. Results & Data ([facility]) Vital Signs (Past 12 Hours) Vital Signs Temp Pulse Pulse Resp BP Pulse Ox 07/09/20 07:20 36.9 C 20 145/70 H 99 07/09/20 07:00 59 L 07/09/20 03:25 36.8 C 62 18 122/69 97 07/09/20 00:00 63
--- NOTE | 2020-07-09 19:36 | Hospitalist Progress Note ---
Date of Service July 09, 2020 Assessment & Plan (1) Bradycardia: PVCs and subsequent tyra, also concern on ?baseline tyra -- stable now. continue plan as per cardiology, but will want outpt rhythm monitoring (2) Frequent PVCs: As above (3) Pulmonary hypertension: Noted in history No acute issues (4) Aortic stenosis: Noted to be moderate on most recent echo from 09/2019 by his bench press operator notes No acute issues (5) Neurogenic claudication due to lumbar spinal stenosis: Status post L2-S1 decompression and fusion by Dr. Dillon on 07/04 Postoperative care as per orthopedics (6) GERD (gastroesophageal reflux disease): Listed as a diagnosis in his chart but not on medications for this Follow along (7) Gout: No acute issues Continue home allopurinol 300 mg 2 times a week (8) Hypertension: Blood pressures are within normal limits -Continue Zebeta as above with hold parameters Continue home losartan 50 mg daily (9) Hyperlipidemia: Continue home statin (10) DVT prophylaxis: Thigh-high SCDs, no chemical prophylaxis due to spinal surgery (11) Hypomagnesemia: Replace and monitor (12) Discharge planning issues: medical team will sign off at this time, available as needed, thank you Admission and Anticipated Discharge Date Admission Date: July 04, 2020 Subjective feeling better no new complaints no further episodes workforce consultant input appreciated Review of Systems Review of Systems: All systems reviewed & are unremarkable except as noted in HPI & below Physical Exam Physical Exam: gen aao pleasant nad heent nc at mmm breathing unlabored no accessory muslces good effort skin no rashes no pallor or icterus Results & Data Results & Data ([facility]) Vital Signs (Past 12 Hours) Vital Signs Temp Pulse Pulse Resp BP Pulse Ox 07/09/20 19:06 98.2 F 65 18 114/51 L 98 07/09/20 15:05 98.4 F 63 18 113/65 99 07/09/20 14:52 59 L 07/09/20 12:07 98.1 F 65 18 96/58 L 96 PG Care Time/CCT Total # of Minutes Spent Total Time Spent with Patient: Total time spent is greater than 50% in coordination of care (as documented) at patient's floor/unit and/or counseling patient: Coding Level of Care Code 67741 Subseq Hosp Care Lvl 2 Diagnoses Bradycardia R00.1 Frequent PVCs I49.3 Pulmonary hypertension I27.20 Aortic stenosis I35.0 Neurogenic claudication due to lumbar spinal stenosis M48.062 GERD (gastroesophageal reflux disease) K21.9 Gout M10.9 Hypertension I10 Hyperlipidemia E78.5 DVT prophylaxis Z29.9 Hypomagnesemia E83.42 Discharge planning issues Z02.9
[2020-07-09] MEDS: DOCUSATE SODIUM/SENNA 50/8.6MG TAB PO SCH (20:31)
[2020-07-09] MEDS: ATORVASTATIN 40 MG TAB PO SCH (20:31)
[2020-07-09] MEDS: ASPIRIN 81 MG ECTAB PO SCH (20:31)
[2020-07-10] MEDS: POLYETHYLENE (MIRALAX) 17 GM PACK PO SCH ×5 (00:19→23:05)
[2020-07-10] MEDS: ONDANSETRON INJ 2 MG/ML 2 ML VIAL IV SCH ×4 (06:08→23:04)
[2020-07-10] MEDS: BISOPROLOL FUMARATE 5 MG TAB PO SCH ×2 (08:02→21:30)
[2020-07-10] MEDS: LOSARTAN POTASSIUM 50 MG TAB PO SCH (08:02)
--- NOTE | 2020-07-10 09:51 | Orthopedic Progress Note ---
Date of Service July 10, 2020 Assessment & Plan (1) Neurogenic claudication due to lumbar spinal stenosis: Will DC LIBRADO drain and dressing change. Continue with pain control. Continue with bowel regimen. He is orthopedically stable for discharge. Currently awaiting okay from cardiology team as to when he can be discharged home. Admission and Anticipated Discharge Date Admission Date: July 04, 2020 Supervising Physician Co-Signing Physician Notes Dr. Anup Dillon Subjective Patient is postoperative day 6 multilevel lumbar decompression fusion. Still on telemetry floor with episodes of bradycardia and PVCs. Denies shortness of breath, palpitations or chest pain. Largest complaint is gout in his right foot. He is receiving allopurinol for this. He is ambulatory back and forth to the restroom. He is undergoing physical therapy. LIBRADO drain is intact. He has had a bowel movement and passing flatus. Review of Systems Review of Systems: All systems reviewed & are unremarkable except as noted in HPI & below Physical Exam Physical Exam: Sitting on the edge of the bed. Alert and oriented x3. Lumbar dressing is clean dry and intact Calf soft nontender bilaterally Strength is intact bilateral lower extremities. Constitutional: WD/WN, vitals as above Eyes: normal visual stinson by confrontation ENMT: external ear and nose normal, oropharynx normal Neck: normal visual inspection Respiratory: normal respiratory effort Cardiovascular: Vessels: normal peripheral pulses Extremities: normal capillary refill Chest (Breasts): Chest: normal inspection of chest Gastrointestinal (Abdomen): Inspection/Auscultation: abdomen normal to inspection Musculoskeletal: Extremities: extremities normal to inspection and strength 5/5 throughout Skin: no rashes, warm and dry Neurologic: patellar DTR's 2+ bilat, sensation intact normal touch/pain/proprioception and moves all extremities Psychiatric: A+Ox3, euthymic affect Results & Data ([facility]) Vital Signs (Past 12 Hours) Vital Signs Temp Pulse Pulse Resp BP Pulse Ox 07/10/20 07:45 37.2 C 53 L 18 121/71 98 07/10/20 03:39 37.1 C 65 18 121/74 95 07/09/20 23:47 37.1 C 59 L 18 115/67 98 07/09/20 23:00 70
[2020-07-10] MEDS: allopurinoL 300 MG TAB PO PRN (10:51)
[2020-07-10] MEDS ORDERED: allopurinoL 300 MG TAB PO PRN (19:39)
[2020-07-10] MEDS: ATORVASTATIN 40 MG TAB PO SCH (21:28)
[2020-07-10] MEDS: ASPIRIN 81 MG ECTAB PO SCH (21:31)
[2020-07-10] MEDS: DOCUSATE SODIUM/SENNA 50/8.6MG TAB PO SCH (21:32)
[2020-07-11] MEDS: ONDANSETRON INJ 2 MG/ML 2 ML VIAL IV SCH ×2 (05:09→12:24)
[2020-07-11] MEDS: POLYETHYLENE (MIRALAX) 17 GM PACK PO SCH ×2 (05:09→16:04)
--- NOTE | 2020-07-11 08:36 | Orthopedic Progress Note ---
Date of Service July 11, 2020 Assessment & Plan Admission and Anticipated Discharge Date Admission Date: July 04, 2020 Subjective Patient underwent multilevel lumbar decompression fusion tolerated this well was taken to the PACU postoperatively secondary to hypotensive episodes. He progressed appropriately throughout his stay. LIBRADO drain decreasing probably. Unfortunately had a cute onset of gout which did limit his physical therapy. This has resolved. He was subsequently discharged home. Discharge orders instructions found on the chart for further review. Results & Data ([facility]) Vital Signs (Past 12 Hours) Vital Signs Temp Pulse Pulse Resp BP Pulse Ox 07/11/20 07:26 36.9 C 56 L 18 115/59 L 99 07/11/20 04:22 36.8 C 63 18 125/57 L 97 07/11/20 00:00 65 07/10/20 23:15 36.8 C 59 L 20 132/78 100
--- NOTE | 2020-07-11 08:37 | Discharge Summary ---
Date of Service July 11, 2020 Admission HPI Per Admitting Provider This is a 80-year-old male who presents with back and bilateral leg pain. Failing since course of nonoperative care is here for surgical intervention. Principal Diagnosis Lumbar spinal stenosis with neurogenic claudication Discharge Data Allergies Allergy/AdvReac Type Severity Reaction Status Date / Time No Known Allergies Allergy Verified 07/04/20 07:09 Consultations 07/04/20 12:48 Consult Case Management - Discharge Planning Routine Consult Hospitalist Routine 07/04/20 14:40 Consult Cardiology Routine 07/09/20 19:37 Consult [facility] green prize packer Routine Procedures Performed Operation Date: 07/04/20 07:45 Actual Procedures p L2-S1 Decompression Fusion, Spinal Cord Monitoring - Anup Dillon DO Ordered Studies 07/04/20 07:45 FL fluoroscopy <1hr Routine FL lumbar spine 2-3V Routine Hospital Course (1) Neurogenic claudication due to lumbar spinal stenosis: Patient underwent multilevel lumbar depression fusion tolerated well was taken to the telemetry floor postoperatively secondary to hypotension. He progressed appropriately Total Time Total Time Spent Total Time Spent (In Minutes): 20 minutes Discharge Plan Discharge Items Patient Disposition: Home - Self-Care Reason For Visit: Spinal Stenosis, Lumbar Region with Neurogenic Cla Discharge Diagnosis: Lumbar spinal stenosis with neurogenic claudication Activity: As commented below Non-emergency contact: Primary Care Provider Call non-emergency contact if: you have any medication questions Follow-up/Referrals: Amparo Brody M.D. [Primary Care Provider] - Diet: Regular Addtl Attending Provider Instructions: ACTIVITY RECOMMENDATIONS: SELF CARE INSTRUCTIONS AFTER THORACIC/LUMBAR FUSIONS 1. You may walk to your tolerance. It is good exercise for your legs and back. Expect some back and intermittent leg aches and pains. 2. You may perform "counter-top" level activities (make a sandwich, barbra with a project, etc.). 3. No bending or lifting of more than 10 pounds or back twisting of any nature (roll like a log when turning in bed). 4. You may ride in a car for 20-30 minutes at a time. No driving until after your first visit with your doctor. 5. Frequent changes of position and restricting sitting to 30 minutes at a time will help limit the amount of back spasms and stiffness you may experience. 6. You may discontinue the use of ambulatory aids (cane, crutches, etc.) once your strength and confidence allow. 7. You may banner painter the shower and let water strike your incision when you a rrive home at least once daily. Do not take a tub bath, sit in a hot tub or go into a swimming pool until after your first recheck in the office. SPECIAL CARE INSTRUCTIONS: VERY IMPORTANT TO READ AND REVIEW A. Your surgical incision has been closed with a cosmetic suture under the skin that will dissolve in about 6 weeks. In 14 days, you can use a pair of clean scissors and cut the suture that is left outside of the skin at the ends of your incision. 1. The small skin tapes can be removed 7 days after surgery if they have not fallen off by that point. 2. You may keep the wound open to air as much as possible to promote healing after post-op day number 5 unless told otherwise by your doctor. 3. If you think the wound looks like it is becoming infected (redness or worsening drainage) and/or you are experiencing fever, chill or worsening back pain and muscle spasms, contact the office so that we may evaluate you as soon as possible. B. Complications are uncommon, but please contact us if you have any signs or symptoms of: 1. wound infection (fever higher than 102.5 degrees F, redness, separation of wound, drainage, or increasing pain from the incision) 2. blood clots in legs (pain, swelling, redness and warmth in legs) 3. urinary tract infection (fever higher than 102.5 degrees F, burning upon urination or increased frequency of urination) 4. nerve problems (inability to walk on your toes or heels, numbness, loss of bowel or bladder control) 5. any other symptoms that concern you C. Please call the office at if you have any concerns or questions about your operation or recovery. D. No smoking! Smoking drastically decreases the chance of a solid fusion. E. Do not take any anti-inflammatory medications (Indocin, Advil, Motrin, Aspirin, Naprosyn, etc.) as these may inhibit the chance of a solid fusion. Tylenol is okay to take for pain. MANAGING PAIN AFTER SPINAL SURGERY 1. Narcotic medication is intended for short-term use and will be provided for surgical pain. Surgical pain usually lasts for a period of 4-6 weeks. Narcotic medication includes Percocet, Vicodin, Darvocet, Tylenol #3 or Lortab. 2. Longer-term pain is more appropriately treated with non-narcotic medication such as Tylenol ES. 3. Muscle spasm is not appropriately treated with narcotics. Muscle relaxers such as Soma, Flexeril or Skelaxin can be used along with Tylenol ES. 4. Remember that we all live with some "aches and pains". This is not unusual or uncommon after an injury or as we get older. a. Back pain is expected and may include muscle spasms for 4 to 6 weeks afte r surgery. The pain should gradually improve. If the pain worsens for no apparent reason, please contact the office. b. Intermittent leg pain may also be experienced and should not be concerned about unless it worsens for no apparent reason. If so, please contact the office. 5. We will provide appropriate medication within the normal guidelines of their prescribed use. We will also be very cautious and aware of potential abuse and extended duration of patients' medication needs. a. Pain medications are for your comfort and to assist with sleep and rest so that the tissue can heal. They are not provided in order to return to normal activity and should not be used through the day. To do so or worsening pain at night can result from ongoing tissue damage and development of tolerance to the prescribed medicine. 6. Please allow 2-3 days to process refills. Prescriptions will not be mailed but must be picked up at the office. FOLLOW UP VISIT: Keep your scheduled follow-up appointment. Any questions, please call the office at . Pending Studies at Discharge: No Stand-Alone Forms: [facility], Smoking Cessation Medications and DC Order Prescriptions: New tramadol 50 mg tablet 50 mg PO Q6H PRN (Reason: pain, moderate) Qty: 20 RF: 0 oxycodone 5 mg tablet 5 mg PO Q6H PRN (Reason: pain, severe) Qty: 20 RF: 0 allopurinol 300 mg Tablet 300 mg PO DAILY Qty: 30 RF: 2 Continued losartan 50 mg Tablet 50 mg PO QAM RF: 0 atorvastatin 40 mg Tablet 40 mg PO HS RF: 0 aspirin 325 mg Tablet 162 mg PO HS RF: 0 bisoprolol fumarate 5 mg Tablet 5 mg PO QAM RF: 0 Discontinued ibuprofen [Ibuprin] 200 mg Tablet 200 mg PO Q6H PRN (Reason: Pain) RF: 0 Discharge Orders: Discharge Order (Routine); Ordered 07/11/20 Ordered By: Anup Dillon Admission Data Admit Date/Time: 07/04/20 11:40 Attending Provider: Anup Dillon Admit Provider: Anup Dillon Primary Care Provider: Amparo Brody Other Providers: Neil Musa Charles C. ; Jose Luis Mata
--- NOTE | 2020-07-11 09:54 | Cardiology Progress Note ---
Date of Service July 11, 2020 Assessment & Plan (1) Vagal bradycardia: He had an episode several days ago which I believe to be vagal. He describes it as being triggered by extreme pain from walking, he had a sinus bradycardia not heart block and only very transiently. That is not charac teristic of beta-mahsa therapy. We use beta-blockers sometimes to treat vagal events, therefore I would not alter his beta mahsa therapy for this event. I do not think monitoring would help at this point since this was well recorded on telemetry, I would continue beta-mahsa therapy. He does have a spear fisher he sees as an outpatient. (2) Bradycardia: He had a low pulse on admission due to ventricular bigeminy, his sinus rate has not been very low except briefly during what I feel is a vagal event. My approach would be to continue to suppress the PVCs. He had been on a beta- mahsa as an outpatient, that was held the day of surgery but he did receive it subsequently and his PVCs dramatically improved although there appears to be a consistent finding that in the morning his PVCs increased somewhat consistent with beta-mahsa metabolism. I switched him to 2.5 mg twice a day (the same daily dose) however he is continued to have frequent PVCs, at a reduced dose compared to presentation. I am going to increase his beta-mahsa to 5 mg in the morning and 2.5 mg in the evening. This can be followed up by his spear fisher. (3) Frequent PVCs: He had frequent premature ventricular beats, often in a pattern of bigeminy here, which so far appears to be adequately suppressed on beta-blockad e. He has had no ventricular tachycardia identified here and no hemodynamic symptoms historically to suggest outpatient episodes. The origin looks like the right ventricular outflow tract and these arrhythmias often respond to beta- blockade. If that does not work in the future and the rhythm needs to be treated (if he develops symptoms or left ventricular dysfunction) then ablation would be an option. I would not consider that at this point. (4) Aortic stenosis: He has aortic stenosis which has been moderate in the past and he follows with cardiology elsewhere for this. I would not evaluate further here and this is probably unrelated to his arrhythmia. Admission and Anticipated Discharge Date Admission Date: July 04, 2020 Subjective He is feeling well today, no palpitations, much less discomfort in his feet and back. He is anxious to go home. Physical Exam Physical Exam: Constitutional: Alert, cooperative and in no distress. Neck: No jugular venous distention, carotid pulses are normal and equal bilaterally without bruits. Pulmonary: Clear to auscultation bilaterally. Cardiac: Regular rhythm with premature beats and a grade 2/6 crescendo decrescendo murmur at the base, no gallop or rub. Abdomen: Soft, nontender with normal bowel sounds. Extremities: No edema. Distal pulses intact. Skin: No rash, ecchymoses or petechiae. Results & Data ([facility]) Vital Signs (Past 12 Hours) Vital Signs Temp Pulse Pulse Resp BP Pulse Ox 07/11/20 07:26 36.9 C 56 L 18 115/59 L 99 07/11/20 04:22 36.8 C 63 18 125/57 L 97 07/11/20 00:00 65 07/10/20 23:15 36.8 C 59 L 20 132/78 100 Laboratory Results Intake and Output 07/10/20 07/11/20 07/11/20 22:59 06:59 14:59 Intake Total 240 / 835 120 / 835 Output Total 400 / 1250 650 / 1250 Balance -160 / -415 -530 / -415 Intake: Oral 240 / 835 120 / 835 Output: Urine 400 / 1250 650 / 1250 Other: Weight 109.1 kg 109.1 kg Patient Weight 07/12/20 06:59 Weight 109.1 kg Diagnostic Findings Telemetry: Sinus rhythm with frequent premature ventricular beats, often in a bigeminal pattern. PG Care Time/CCT Total # of Minutes Spent Total Time Spent with Patient: Total time spent is greater than 50% in coordination of care (as documented) at patient's floor/unit and/or counseling patient: Coding Level of Care Code 64866 Subseq Hosp Care Lvl 2 Diagnoses Vagal bradycardia R00.1 Bradycardia R00.1 Frequent PVCs I49.3 Aortic stenosis I35.0
[2020-07-11] MEDS: BISOPROLOL FUMARATE 5 MG TAB PO SCH (12:23)
[2020-07-11] MEDS: LOSARTAN POTASSIUM 50 MG TAB PO SCH (12:24)
== END 2020-07-11 16:36 | disposition home health service (06) | DRG 460 ==
LOC: ASU 06:36 → 3E 11:40 → 2S 14:00

== ENCOUNTER 2020-07-22 17:31 | Observation (INO) ==
[2020-07-22] MEDS ORDERED: POLYETHYLENE (MIRALAX) 17 GM PACK PO PRN (21:39)
[2020-07-22] MEDS ORDERED: ONDANSETRON INJ 2 MG/ML 2 ML VIAL IV PRN (21:39)
[2020-07-22] MEDS ORDERED: MAGNESIUM HYDROXIDE SUSP 30 ML UDC PO PRN (21:39)
[2020-07-22] MEDS ORDERED: traMADol HCL 50 MG TABLET PO PRN (21:39)
[2020-07-22] MEDS ORDERED: ACETAMINOPHEN 325 MG TAB PO PRN (21:39)
--- NOTE | 2020-07-22 21:50 | History & Physical Report ---
Date of Service July 22, 2020 Assessment & Plan (1) Pulmonary hypertension: Cl Starr is an 80 year old man with a past medical history signficiant for aortic stenois, HLD, HTN, pulmonary hypertension, and back pain status post L2-S1 fusion last month who is here with back pain and difficulty getting around Back Pain Dr. Dillon consulted for post op pain and inability to get around MRI lumbar spine ordered to further evaluate spine for possible infection or fluid collection No evidence for inection on labwork Patient currently with only very mild pain As patient describes it as muscle spasm more than anything without any neuro findings I will add cyclobenzaprine and consult PT/OT patient may benefit from SNF or rehab on discharge this time Continuing PO pain regimen for now as patient seems to be doing well. tylenol tramadol and oxycodone Gout May have been driving some of his symptoms and decision to crawl on all fours Went to PCP who gave allopurinol and pain seems to be resolving at present When I initially talked to patient about what brought him in he only spoke of gout and did not mention back though curiously his feet are completely nontender to examination and patient denies radiculopathic pain Continuing allopurinol Bradycardia Seen by cardiology before discharge on previous admission who believe this is vagal bradycardia and recommended continuing beta mahsa Pulse in 50's currently and asymptomatic Will continue to monitor Aortic stenosis Known problem followed by outside cardiology no new symptoms attributable Pulmonary hypertension No acute issues HTN Continuing losartan and bisoprolol HLD Atorvastatin forty mg daily DVT Ppx: Lovenox F/E/N: hearth heatlhy diet Dispo: Admit for MRi and surgical team re evaluation. pain adequately controlled at present DNR/DNI (2) Hypertension: (3) Hyperlipidemia: (4) Gout: (5) GERD (gastroesophageal reflux disease): (6) Aortic stenosis: (7) Neurogenic claudication due to lumbar spinal stenosis: (8) Back pain: Admission and Anticipated Discharge Date Admission Date: July 22, 2020 History of Present Illness Chief Complaint: Back Pain Primary Care Provider: Amparo Brody Cl Starr is an 80 year old man with a past medical history significant for HTN, HLD, Gout, aortic stenosis, pulmonary hypertension who is status post L2-S1 spinal fusion for neurogenic claudication of lower limbs on 07/04. [facility] where he dealt with severe gout. His primary care doctor prescribed him allupurinol and his gout is much improved however his back is bothering him. he feels very stiff and has severe pain when trying to move around. Patient has resorted to crawling on hands and knees multiple times to get around house and go to the bathroom secondary to back pain/muscle spasm and gout pain in his feet. Today he tried to go to the refrigerator and was unable to stand up secondary to pain and had to crawl on his hands and knees to the kitchen. He was not able to get back up and his son brought him to [facility] where he had an initial workup that was fairly unremarkable including CT spine showing post op changes without a distinct fluid collection. Patient denies, fevers chills, sweats, or systemic symptoms. Describes his pain as being localized to area around incision and sharp and shooting. No radiculopathy, no leg numnbness, no spinous process tenderness, sometimes keeps him from sleeping but does not wake him up from it. Patient is also very concerned about gout in his feet being a culprit but he currently denies any pain. DNR/DNI Allergies Allergy/AdvReac Type Severity Reaction Status Date / Time No Known Allergies Allergy Verified 07/04/20 07:09 Home Medications Home Medications Medication Instructions Recorded Confirmed Type aspirin 162 mg PO DAILY 06/18/20 07/22/20 History atorvastatin 40 mg PO DAILY 06/18/20 07/22/20 History bisoprolol fumarate 5 mg PO QAM 06/18/20 07/22/20 History losartan 50 mg PO QAM 06/18/20 07/22/20 History oxycodone 5 mg PO Q6H PRN #20 tab 07/06/20 07/22/20 Rx tramadol 50 mg PO Q6H PRN #20 tab 07/06/20 07/22/20 Rx allopurinol 300 mg PO DAILY #30 tab 07/11/20 07/22/20 Rx bisoprolol fumarate 2.5 mg PO .daily pm #15 tab 07/11/20 07/22/20 Rx Past Med/Surg History Medical History (Updated 07/23/20 @ 16:33 by Summer Vallejo DO) Aortic stenosis Moderate per 09/2019 ECHO- chronic murmur - follows with Dr. Hazel Chronic back pain LOWER BACK GERD (gastroesophageal reflux disease) Well controlled and stable Gout No recent flares Hyperlipidemia Hypertension Pulmonary hypertension SOB (shortness of breath) on exertion INACTIVE DUE TO BACK ISSUES Surgical History H/O myringotomy History of cataract surgery RIGHT History of ear surgery RIGHT-FOR MASTOID ISSUES Family History Sister Family history of diabetes mellitus Sister Family history of diabetes mellitus Social History Smoking Status: Former smoker Second Hand Exposure: Yes (FATHER SMOKED); Hx Alcohol Use: Yes Alcohol type: beer Alcohol Intake Frequency: 4 or More x per/Week Alcohol Intake Frequency Comment: But recently cut down to 1 beer per week for the last for 3 weeks Hx Substance Use: No Preferred Language: Malagasy Communication Ability: Effective Science Manager Required: No Beliefs That Will Affect Care: None Current Living Situation: Alone Other Information That Helps Us Care for You: No Feels Safe at Home: Yes Safety Concerns: Feels Safe At This Time Assistive Devices: Walker Assistive Devices Comment: glasses present Review of Systems Review of Systems: All systems reviewed & are unremarkable except as noted in HPI & below Physical Exam Physical Exam: Constitutional: well appearing man lying in bed in no apparent distress appears younger than stated age Eyes: EOMMI bilaterally ENMT: NAD Respiratory: no increased work of breathing, lung sounds vesicular in all lung stinson, Cardiovascular: loud mumur best appreciated at left sternal border, bradycardic, peripheral pulses equal and intact GI: Abdomen soft nontender Skin: incision of back appears well approximated some edema or fluid palpable around left side of incision. No pain to palpation of the area, patient not currently experiencing muscle spasm or pain Results & Data Results & Data ([facility]) Vital Signs (Past 12 Hours) Vital Signs Pulse Resp BP Pulse Ox 07/22/20 21:19 57 L 16 160/74 H 95 Code Status & VTE Plan VTE Prophylaxis Plan VTE Prophylaxis will be ordered: Yes Supervising Physician Co-Signing Physician Notes Attending addendum: I have physically seen this patient, have supervised the medical residents activities, and agree with the H&P unless as otherwise noted. Assessment and Plan: Intractable back pain/status post multilevel lumbar decompression fusion on 07/04/2020- Consult orthopedic surgery Dr. Dillon. Consult PT/OT Pain control with Tylenol/tramadol and oxycodone as noted. Hypertension/aortic stenosis- Continue losartan. Hold bisoprolol for bradycardia Hyperlipidemia- Continue atorvastatin Remaining orders and notations as noted Resident Activity Tracking Resident Involvement: Resident Care Provided Care Provided: [facility]
[2020-07-22 22:46] LABS: Red Blood Count 3.24 M/uL (4.7-6.1); White Blood Count 12.58 K/uL (4.8-10.8)
[2020-07-22 22:47] LABS: Basophils # (auto) 0.02 K/uL (0-0.2); Basophils % (auto) 0.2 %; Eosinophils # (auto) 0.03 K/uL (0-0.5); Eosinophils % (auto) 0.2 %; Hematocrit (blood only) 29.1 % (42-52); Hemoglobin 9.7 g/dL (14.0-18.0); Immature Granulocytes # (auto) 0.07 K/uL (0.00-0.02); Immature Granulocytes % (auto) 0.6 %; Lymphocytes # (auto) 2.12 K/uL (1.2-3.4); Lymphocytes % (auto) 16.9 %; Mean Corpuscular Hemoglobin 29.9 pg (25-34); Mean Corpuscular Hgb Conc 33.3 g/dL (32-36); Mean Corpuscular Volume 89.8 fL (80-100); Mean Platelet Volume 9.6 fL (7.4-10.4); Monocytes # (auto) 0.78 K/uL (0.11-0.59); Monocytes % (auto) 6.2 %; Neutrophils # (auto) 9.56 K/uL (1.4-6.5); Neutrophils % (auto) 75.9 %; Platelet Count 435 K/uL (130-400); RDW Coefficient of Variation 14.3 % (11.5-14.5); RDW Standard Deviation 46.8 fL (36.4-46.3)
[2020-07-22 23:02] LABS: Albumin Level 2.6 gm/dl (3.4-5.0); BUN Creatinine Ratio 16.1 (10-20); Creatinine Clr Calc Pharmacy 83.1 ml/min; Est GFR (African American) 93.6; Est GFR (Non-African American) 80.8; Potassium 4.1 mmol/L (3.5-5.1)
[2020-07-22] MEDS: BISOPROLOL FUMARATE 5 MG TAB PO SCH (23:03)
[2020-07-22 23:05] LABS: Albumin Globulin Ratio 0.6 (0.9-2); Bilirubin,Total 0.4 mg/dl (0.2-1); Globulin 4.1 gm/dl (2.5-4.0); Total Protein 6.7 gm/dl (6.4-8.2)
[2020-07-23] MEDS: allopurinoL 300 MG TAB PO SCH (09:00)
[2020-07-23] MEDS: LOSARTAN POTASSIUM 50 MG TAB PO SCH (09:00)
[2020-07-23] MEDS: BISOPROLOL FUMARATE 5 MG TAB PO SCH ×2 (09:01→21:57)
[2020-07-23] MEDS: oxyCODONE HCL IR 5 MG TAB (IMMEDIATE RELEASE) PO PRN ×2 (09:03→16:34)
[2020-07-23] MEDS: CYCLOBENZAPRINE HCL 5 MG TAB PO PRN ×2 (09:05→17:05)
--- NOTE | 2020-07-23 09:14 | Orthopedic Consultation ---
Date of Consultation July 23, 2020 Assessment & Plan (1) Postoperative back pain: This time it appears to have mostly back spasms in the postoperative period he is on Flexeril and oxycodone this is helping him. Is improved this morning. MRI is pending. I suspect this will be within normal limits and that we should plan on discharge tomorrow. Present on Admission?: Yes History of Present Illness Reason for Consultation: Back spasms Attending Physician: Jose Luis Mata DO History of Present Illness This is a 80-year-old male with a well-known to me that presents with worsening back spasms with the past 24 hours. He denies any fevers or chills. Denies any leg pain. His gout is improved. Allergies Allergy/AdvReac Type Severity Reaction Status Date / Time No Known Allergies Allergy Verified 07/04/20 07:09 Home Medications Home Medications Medication Instructions Recorded Confirmed Type aspirin 162 mg PO DAILY 06/18/20 07/22/20 History atorvastatin 40 mg PO DAILY 06/18/20 07/22/20 History bisoprolol fumarate 5 mg PO QAM 06/18/20 07/22/20 History losartan 50 mg PO QAM 06/18/20 07/22/20 History oxycodone 5 mg PO Q6H PRN #20 tab 07/06/20 07/22/20 Rx tramadol 50 mg PO Q6H PRN #20 tab 07/06/20 07/22/20 Rx allopurinol 300 mg PO DAILY #30 tab 07/11/20 07/22/20 Rx bisoprolol fumarate 2.5 mg PO .daily pm #15 tab 07/11/20 07/22/20 Rx Patient History Medical History (Updated 07/23/20 @ 09:14 by Anup Dillon DO) Aortic stenosis Moderate per 09/2019 ECHO- chronic murmur - follows with Dr. Hazel Chronic back pain LOWER BACK GERD (gastroesophageal reflux disease) Well controlled and stable Gout No recent flares Hyperlipidemia Hypertension Pulmonary hypertension SOB (shortness of breath) on exertion INACTIVE DUE TO BACK ISSUES Surgical History H/O myringotomy History of cataract surgery RIGHT History of ear surgery RIGHT-FOR MASTOID ISSUES Family History Sister Family history of diabetes mellitus Sister Family history of diabetes mellitus Social History Smoking Status: Former smoker Second Hand Exposure: Yes (FATHER SMOKED); Hx Alcohol Use: Yes Alcohol type: beer Alcohol Intake Frequency: 4 or More x per/Week Alcohol Intake Frequency Comment: But recently cut down to 1 beer per week for the last for 3 weeks Hx Substance Use: No Preferred Language: Turkmen Communication Ability: Effective Wind Up Operator Required: No Beliefs That Will Affect Care: None Current Living Situation: Alone Other Information That Helps Us Care for You: No Feels Safe at Home: Yes Safety Concerns: Feels Safe At This Time Assistive Devices: Walker Assistive Devices Comment: glasses present Physical Exam Physical Exam: He has excellent strength testing. Incision appears to be healing appropriately. This morning he states his symptoms are marked only improved from his admission last night. Results & Data ([facility]) Vital Signs (Past 12 Hours) Vital Signs Temp Pulse Resp BP Pulse Ox 07/23/20 07:46 36.6 C 53 L 18 159/76 H 98 07/22/20 22:59 36.4 C L 53 L 16 112/62 98 07/22/20 21:19 57 L 16 160/74 H 95
[2020-07-23] MEDS ORDERED: GADOBUTROL 65ML VIAL IV ONE (10:10)
--- NOTE | 2020-07-23 10:36 | Magnetic Resonance Report ---
MR lumbar spine wo/w con CLINICAL HISTORY: Post op pain inability to ambulate SURGERY 2019 TECHNIQUE: Sagittal and axial T1, T2 and STIR images were obtained. Images were acquired before and a fter the administration of 10 cc of intravenous Gadavist COMPARISON STUDY: Intraoperative spot images performed 07/04/2020 OBSERVATIONS: There is artifact secondary to a posterior pedicle screw L2-S1 spinal fusion. There are no areas of m arrow replacement suspicious for metastatic disease or occult fracture. L1-2: No disc protrusions or extrusions. No evidence of spinal canal or neural foraminal compromise. L2-3: There is a circumferential disc bulge. There are postsurgical changes of a posterior laminectom y. There is no significant spinal or foraminal stenosis.There is enhancing soft tissue surrounding th e thecal sac consistent with postsurgical epidural fibrosis. L3-4: There is a circumferential disc bulge. There are postsurgical changes of posterior laminectomy. There is no significant spinal or foraminal stenosis.There is enhancing soft tissue surrounding the thecal sac consistent with postsurgical epidural fibrosis. L4-5: There is circumferential disc bulge. There are postsurgical changes of a posterior laminectomy. There is no significant spinal or foraminal stenosis. There is enhancing soft tissue surrounding the thecal sac consistent with postsurgical epidural fibrosis. L5-S1: There is a broad-based central disc protrusion. There are postlaminectomy changes. There is no significant spinal stenosis. Mild bilateral foraminal narrowing is suspected. There is enhancing sof t tissue surrounding the thecal sac consistent with postsurgical epidural fibrosis. There is posterior paraspinal T2 edema and mild enhancement consistent with postsurgical change. There are fluid collections posterior to the thecal sac at the L2-S1 level, likely secondary to recen t surgery. The sterility of these collections cannot be determined. There is also subcutaneous fluid at the level of surgery also consistent with recent surgery The conus medullaris and cauda equina appear normal. IMPRESSION: 1. Postsurgical changes of an L2-S1 spinal decompression and fusion. 2. Moderate artifact from the spinal hardware 3. No evidence of significant spinal stenosis 4. Multilevel enhancing epidural soft tissue consistent with postsurgical fibrosis/granulation tissue 5. Posterior extradural fluid collections, consistent with recent surgery. The sterility these collec tions cannot be determined 6. Paraspinal muscular edema consistent with recent surgery ACT 112: Negative or not required by law. Electronically signed by: Bird Arreguin M.D. 07/23/2020 10:35 AM
--- NOTE | 2020-07-23 11:45 | Hospitalist Progress Note ---
Date of Service July 23, 2020 Assessment & Plan (1) Postoperative back pain: 80 yo M PMHx aortic stenois, HLD, HTN, pulmonary hypertension, and back pain s/p L2-S1 fusion last month, admitted for ambulatory dysfunction and worsening back pain impacting mobility. Back Pain - Dr. Dillon consulted for post op pain difficulty ambulating, appreciate recommendations. - MRI lumbar spine ordered -> shows postsurgical changes, postsurgical granulation tissue, and pasaspinal muscular edema consistent with recent surgery. - Also shows posterior extradural fluid collection, also consistent with recent surgery. - PT/OT evaluations ordered. Suspect patient may have deconditioning and postsur gical pain causing difficulty ambulating. - CBC without findings suggestive of infection. - Exam consistent with muscle spasm, no bony spine tenderness, or tenderness over surgical site. - Continue Flexeril and oxycodone. - Pending PT/OT, patient may discharge tomorrow to either SNF versus home with home PT/OT. Gout: - Continue allopurinol. - No active flare at this time. 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 - Patient without symptoms and HR in 50s. Aortic stenosis: - History of, no SOB, fatigue, chest pain. - No intervention at this time. HTN: - Continue losartan and bisoprolol. HLD: - Continue Atorvastatin 40mg daily. Code Status: DNR/DNI DVT ppx: Heparin 5000u q12h F/E/N: Heart Healthy Dispo: Med/Surg, PT/OT evaluations for dispo plan (2) Pulmonary hypertension: (3) Hypertension: (4) Hyperlipidemia: (5) Gout: (6) GERD (gastroesophageal reflux disease): (7) Aortic stenosis: (8) Back muscle spasm: Admission and Anticipated Discharge Date Admission Date: July 22, 2020 Supervising Physician Co-Signing Physician Notes PT seen, discussed case, and agree with decision making with Dr Carbajal. sleeping comfortably. ortho input noted and appreciated. MRI noted. vitals noted nad sleeping comfortably breathing unlabored no rashes no pallor or icterus back spasms - PT/OT eval and treat. right now resting comfortably and seems to have improved. consider OMT if they recur. otherwise as above Subjective Patient without acute events overnight. Reports less pain today as compared to yesterday. Report "spasms" that last a few seconds to minutes if he moves certain ways. Was not very ambulatory for several days at home due to both pain in back and gouty pain in limb. Has become weaker and weaker since surgery. No numbness or tingling of extremities. Does subjectively report some weakness and fatigue with normally easy movements. Pain in back is reported to be at either side of his low back, cramping in nature. No radiation of pain. Review of Systems Review of Systems: All systems reviewed & are unremarkable except as noted in HPI & below Constitutional: no fever, no chills and no malaise Respiratory: no cough and no dyspnea Cardiovascular: no chest pain, no palpitations and no edema Gastrointestinal: no abdominal pain, no constipation and no diarrhea/loose stools Physical Exam Constitutional: WD/WN, vitals as above Eyes: PERRL, conjunctivae normal, anicteric sclerae ENMT: external ear and nose normal, oropharynx normal Neck: normal visual inspection Respiratory: normal respiratory effort, lungs clear to auscultation Cardiovascular: RRR, no murmur, no edema Gastrointestinal (Abdomen): normal bowel sounds, soft, nontender, no hepatosplenomegaly Musculoskeletal: Extremities: no cyanosis and no clubbing refused sitting up due to pain and fear of worsening pain, but rolled over without difficulty Skin: no rashes, warm and dry Neurologic: patellar DTR's 2+ bilat, sensation intact Psychiatric: A+Ox3, euthymic affect Results & Data Results & Data ([facility]) Vital Signs (Past 12 Hours) Vital Signs Temp Pulse Resp BP Pulse Ox 07/23/20 07:46 36.6 C 53 L 18 159/76 H 98 Resident Activity Tracking Resident Involvement: Resident Care Provided Care Provided: Adult [facility]
--- NOTE | 2020-07-23 18:41 | Billing Data ---
Date of Service July 23, 2020 Coding Level of Care Code 49531 Subseq Obs Care Lvl 2
[2020-07-23] MEDS ORDERED: ATORVASTATIN 40 MG TAB PO SCH (21:00)
[2020-07-23] MEDS ORDERED: ASPIRIN 81 MG ECTAB PO SCH (21:00)
[2020-07-23] MEDS: HEPARIN SOD 5,000 UNIT/0.5 ML VIAL SQ SCH (21:58)
--- NOTE | 2020-07-24 05:11 | Billing Data ---
Date of Service July 24, 2020 Coding Level of Care Code 79328 Initial Inpt Care Lvl 3
[2020-07-24] MEDS: allopurinoL 300 MG TAB PO SCH (09:09)
[2020-07-24] MEDS: LOSARTAN POTASSIUM 50 MG TAB PO SCH (09:09)
[2020-07-24] MEDS: HEPARIN SOD 5,000 UNIT/0.5 ML VIAL SQ SCH (09:09)
[2020-07-24] MEDS: BISOPROLOL FUMARATE 5 MG TAB PO SCH (09:09)
[2020-07-24] MEDS: oxyCODONE HCL IR 5 MG TAB (IMMEDIATE RELEASE) PO PRN ×2 (09:11→16:48)
--- NOTE | 2020-07-24 10:42 | Discharge Summary ---
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 He was discharged from [facility] on July to home where he dealt with severe gout. His primary care doctor prescribed him allupurinol and his gout is much improved however his back is bothering him. he feels very stiff and has severe pain when trying to move around. Patient has resorted to crawling on hands and knees multiple times to get around house and go to the bathroom secondary to back pain/muscle spasm and gout pain in his feet. Today he tried to go to the refrigerator and was unable to stand up secondary to pain and had to crawl on his hands and knees to the kitchen. He was not able to get back up and his son brought him to [facility] where he had an initial workup that was fairly unremarkable including CT spine showing post op changes without a di stinct fluid collection. Patient denies, fevers chills, sweats, or systemic symptoms. Describes his pain as being localized to area around incision and sharp and shooting. No radiculopathy, no leg numnbness, no spinous process tenderness, sometimes keeps him from sleeping but does not wake him up from it. Patient is also very concerned about gout in his feet being a culprit but he currently denies any pain. DNR/DNI Admission Exam Per Admitting Provider Constitutional: well appearing man lying in bed in no apparent distress appears younger than stated age Eyes: EOMI bilaterally ENMT: NAD Respiratory: no increased work of breathing, lung sounds vesicular in all lung stinson, Cardiovascular: loud murmur best appreciated at left sternal border, bradycardic, peripheral pulses equal and intact GI: Abdomen soft nontender Skin: incision of back appears well approximated some edema or fluid palpable around left side of incision. No pain to palpation of the area, patient not currently experiencing muscle spasm or pain Principal Diagnosis back muscle spasm deconditioning Discharge Exam Constitutional: WD/WN, vitals as above Eyes: PERRL, conjunctivae normal, anicteric sclerae ENMT: external ear and nose normal, oropharynx normal Neck: normal visual inspection Respiratory: normal respiratory effort, lungs clear to auscultation Cardiovascular: RRR, no murmur, no edema Gastrointestinal (Abdomen): normal bowel sounds, soft, nontender, no hepatosplenomegaly Musculoskeletal: Extremities: no cyanosis and no clubbing, watched patient roll onto side, sit up, and stand with walker assistance. Watched patient walk without antalgic gait and with good balance Skin: no rashes, warm and dry Neurologic: patellar DTR's 2+ bilaterally, sensation intact Psychiatric: A+Ox3, euthymic affect Discharge Data Allergies Allergy/AdvReac Type Severity Reaction Status Date / Time No Known Allergies Allergy Verified 07/04/20 07:09 Consultations 07/22/20 21:39 Consult Case Management - Discharge Planning Routine Consult Orthopedic Surgery Routine Ordered Studies 07/23/20 08:10 MR lumbar spine wo/w con Routine Hospital Course (1) Postoperative back pain: 80 yo M PMHx aortic stenois, HLD, HTN, pulmonary hypertension, and back pain s/p L2-S1 fusion last month, admitted for ambulatory dysfunction and worsening back pain impacting mobility. Post-operative Back Pain: - Dr. Dillon consulted for post op pain difficulty ambulating, appreciate recommendations. - MRI lumbar spine ordered -> shows postsurgical changes, postsurgical granulation tissue, and paraspinal muscular edema consistent with recent surgery. - Also shows posterior extradural fluid collection, also consistent with recent surgery. - PT/OT evaluations ordered. Performed well with Physical Therapy, recommendation to return home with walker with education regarding home exercises. - CBC without findings suggestive of infection. - Exam consistent with muscle spasm, no bony spine tenderness, or tenderness over surgical site. - Observed patient walking halls with walker without assistance or balance issues; PT cleared for home. - Continue home pain medications prescribed post-surgery as needed for severe pain, Tylenol/NSAIDs otherwise. - Advised patient to continue moving and exercising at home to prevent deconditioning and help improve his muscle spasms. Gout: - Continue allopurinol. - No active flare at this time. 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 - Patient without symptoms and HR in 50s. Aortic stenosis: - History of, no SOB, fatigue, chest pain. - No intervention at this time. HTN: - Continue losartan and bisoprolol. HLD: - Continue Atorvastatin 40mg daily. (2) Pulmonary hypertension: (3) Hypertension: (4) Hyperlipidemia: (5) Gout: (6) GERD (gastroesophageal reflux disease): (7) Aortic stenosis: (8) Back muscle spasm: Total Time Total Time Spent Total Time Spent (In Minutes): <30 Discharge Plan Discharge Items Patient Disposition: Home - Home Health Services Reason For Visit: INTRACTABLE BACK PAIN AND STIFFNESS Discharge Diagnosis: deconditioning back pain Activity: Per Instructions section Lifting: Gradually increase as tolerated Weightbearing: Full weightbearing Non-emergency contact: Primary Care Provider and Surgeon Call non-emergency contact if: you have any medication questions, your symptoms worsen, you have a fever and your temperature is above 101 Follow-up/Referrals: Anup Dillon DO [Surgeon] - Amparo Brody M.D. [Primary Care Provider] - 08/07/20 1:30 pm (PCP IS ON VACATION WEEK OF 07/29/20-08/05/20) Diet: Regular Addtl Attending Provider Instructions: You were admitted to the hospital for worsening of your back pain and difficulty walking around. We did an MRI of your back which did not show any acute problems that would explain your pain. You were noted on exam to have very tight muscles in your back, which were likely causing the muscle spasms you were experiencing. Our physical therapists walked you around and said that you were safe for discharge home, as long as you perform physical therapy exercises at home. If you stay in bed and do not move due to pain, your muscles atrophy and forget how to work, so it is important to exercise at home to continue to get stronger. We felt safe to discharge you home with the following recommendations: You can keep taking your home Ultram and oxycodone at home for your severe pain. You can take Tylenol for mild pain. You should have follow up with both Dr. Dillon and your primary care doctor in 7-10 days. Please call the numbers above to schedule those appointments. Please try to get up and walk around your house every hour while you are awake, to help exercise your leg and back muscles. If you have any shortness of breath, chest pains, fevers over 100.4, or inability to move at home, please seek urgent medical attention. Pending Studies at Discharge: No Stand-Alone Forms: [employer], Smoking Cessation Medications and DC Order Prescriptions: Continued losartan 50 mg Tablet 50 mg PO QAM RF: 0 atorvastatin 40 mg Tablet 40 mg PO DAILY RF: 0 aspirin 325 mg Tablet 162 mg PO DAILY RF: 0 bisoprolol fumarate 5 mg Tablet 5 mg PO QAM RF: 0 tramadol 50 mg tablet 50 mg PO Q6H PRN (Reason: pain, moderate) Qty: 20 RF: 0 oxycodone 5 mg tablet 5 mg PO Q6H PRN (Reason: pain, severe) Qty: 20 RF: 0 allopurinol 300 mg Tablet 300 mg PO DAILY Qty: 30 RF: 2 bisoprolol fumarate 5 mg tablet 2.5 mg PO .daily pm Qty: 15 RF: 0 Discharge Orders: Discharge Order (Routine); Ordered 07/24/20 Ordered By: Summer Blake/Other Patient Handouts: Managing Post-Op Pain at Home Admission Data Admit Date/Time: 07/22/20 21:15 Attending Provider: Jose Luis Mata Admit Provider: Julito Lawrence Primary Care Provider: Amparo Brody Other Providers: Anup Dillon ; Shine Zamarripa Other Interventions: Discharge Summary Assessment (RN) Last Done: 07/24/20 10:57 Supervising Physician Co-Signing Physician Notes I personally examined the patient and verified all blood points of history and exam, discussed case, and agree with decision making with Dr Carbajal. seen during PT - walking slow and steady w walker - balanced, able to turn and get into chair on his own as well. wants to go home vitals noted walking as above noted. no focal neuro deficits. no appearance of pain. back spasms - improved. stable for home. does not want outpt therapy. pain controlled. otherwise as above Resident Activity Tracking Resident Involvement: Resident Care Provided Care Provided: Adult Hospital Medicine
--- NOTE | 2020-07-24 11:50 | Orthopedic Progress Note ---
Date of Service July 24, 2020 Assessment & Plan (1) Back muscle spasm: Admission and Anticipated Discharge Date Admission Date: July 22, 2020 I did have the opportunity to review his updated MRI lumbar spine. Demonstrates normal postoperative changes. I relayed this to the patient. I am comfortable with him being discharged home today and follow-up in the office as scheduled next few weeks. Subjective Back pain is markedly improved. He denies any leg pain. Physical Exam Physical Exam: Patient appears comfortable to go strength testing. Results & Data ([facility]) Vital Signs (Past 12 Hours) Vital Signs Temp Pulse Resp BP Pulse Ox 07/24/20 07:24 36.4 C L 61 18 162/84 H 96
--- NOTE | 2020-07-24 18:15 | Billing Data ---
Date of Service July 24, 2020 Coding Level of Care Code 25446 OBS Care - Discharge
== END 2020-07-24 16:54 | disposition home health service (06) ==
LOC: 3W → SUATTDRO 21:15